=== PATIENT | male | born 1935 | race Caucasian/White ===

== ENCOUNTER 2023-07-13 13:24 | Outpatient (RCR) | payer OTHER, SELFPAY | END 2023-07-13 23:59 | disposition home or self-care (01) | LOC: RST 13:24 | PROVIDERS: ATTENDING PHYSICIAN Family Medicine | DX: R47.01 Aphasia (principal) | CPT/HCPCS: 92507 ==

== ENCOUNTER → 2023-10-26 07:35 | Outpatient (REF) | payer OTHER, SELFPAY ==
[2023-10-26 09:23] LABS: ALT (SGPT) 27 U/L (0-50); AST (SGOT) 42 U/L (17-59); Albumin 4.8 g/dl (3.5-5.0); Alkaline Phosphatase 74 U/L (38-126); Blood Urea Nitrogen 24 mg/dl (9-20); Calcium 9.9 mg/dl (8.4-10.2); Carbon Dioxide 31 mmol/L (22-30); Chloride 99 mmol/L (98-107); Glucose 94 mg/dl (70-99); Sodium 139 mmol/L (135-145); Total Bilirubin 0.9 mg/dl (0.2-1.3); Total Protein 7.2 g/dl (6.3-8.2); eGFR 26.81
[2023-10-26 09:35] LABS: Potassium 3.7 mmol/L (3.5-5.1)
[2023-10-26 09:48] LABS: TSH 4.61 uIU/ml (0.47-4.68)
== END ==
LOC: REG 07:35
PROVIDERS: ATTENDING PHYSICIAN Internal Medicine Cardiovascular Disease; FAMILY PHYSICIAN Family Medicine
DX: Z79.899 Other long term (current) drug therapy (principal)
CPT/HCPCS: 36415; 80053; 84443

== ENCOUNTER → 2023-11-14 08:18 | Outpatient (REF) | payer OTHER, SELFPAY ==
[2023-11-14 12:01] LABS: Blood Urea Nitrogen 27 mg/dl (9-20); Calcium 9.6 mg/dl (8.4-10.2); Carbon Dioxide 29 mmol/L (22-30); Chloride 102 mmol/L (98-107); Glucose 92 mg/dl (70-99); Potassium 4.5 mmol/L (3.5-5.1); Sodium 138 mmol/L (135-145); eGFR 33.72
== END ==
LOC: REG 08:18
PROVIDERS: ATTENDING PHYSICIAN Internal Medicine Cardiovascular Disease; FAMILY PHYSICIAN Family Medicine
DX: I10 Essential (primary) hypertension (principal); N18.30 Chronic kidney disease, stage 3 unspecified
CPT/HCPCS: 36415; 80048

== ENCOUNTER → 2024-05-11 13:33 | Outpatient (REF) | payer OTHER, SELFPAY ==
[2024-05-11 15:12] LABS: ALT (SGPT) 21 U/L (0-50); AST (SGOT) 34 U/L (17-59); Albumin 4.4 g/dl (3.5-5.0); Alkaline Phosphatase 52 U/L (38-126); Blood Urea Nitrogen 25 mg/dl (9-20); Calcium 9.4 mg/dl (8.4-10.2); Carbon Dioxide 30 mmol/L (22-30); Chloride 99 mmol/L (98-107); Glucose 92 mg/dl (70-99); Potassium 4.4 mmol/L (3.5-5.1); Sodium 139 mmol/L (135-145); Total Bilirubin 0.8 mg/dl (0.2-1.3); Total Protein 6.7 g/dl (6.3-8.2); eGFR 31.71
[2024-05-11 17:29] LABS: TSH 3.35 uIU/ml (0.47-4.68)
== END ==
LOC: REG 13:33
PROVIDERS: ATTENDING PHYSICIAN Internal Medicine Cardiovascular Disease; FAMILY PHYSICIAN Family Medicine
DX: I10 Essential (primary) hypertension (principal)
CPT/HCPCS: 36415; 80053; 84443

== ENCOUNTER 2024-05-18 22:11 | Inpatient (IN) | payer OTHER, SELFPAY ==
[2024-05-18 18:52] VITALS: BP 199/71; BMI 18.9
[2024-05-18 19:03] VITALS: BP 199/71
[2024-05-18 19:42] LABS: % Eosinophils 4.1 % (0-6); % Immature Granulocytes 0.3 % (0-0.5); % Lymphocytes 20.4 % (20.5-51.1); % Monocytes 9.4 % (1.7-9.3); % Neutrophils 64.8 % (42.2-75.2); Absolute Basophils 0.1 10^3/uL (0-0.2); Absolute Eosinophils 0.2 10^3/uL (0-0.7); Absolute Lymphocytes 1.2 10^3/uL (1.2-3.4); Absolute Monocytes 0.6 10^3/uL (0.1-0.6); Absolute Neutrophils 3.8 10^3/uL (1.4-6.5); Hematocrit 34.7 % (39.0-52.0); Hemoglobin 11.5 g/dL (13.0-18.0); Mean Corp Hgb Conc. 33.1 g/dL (33.0-37.0); Mean Corpuscular Hgb 28.8 pg (27.0-31.0); Mean Platelet Volume 10.1 fL (7.4-10.4); Nucleated Red Blood Cells % 0 % (-); Platelet Count 170 10^3/uL (130-400); Red Blood Cell Count 3.99 10^6/uL (4.70-6.10); Red Cell Dist. Width 14.2 % (11.5-14.5); White Blood Cell Count 5.9 10^3/uL (4.8-10.8)
[2024-05-18 20:00] VITALS: BP 193/70
[2024-05-18 20:06] LABS: ALT (SGPT) 21 U/L (0-50); AST (SGOT) 35 U/L (17-59); Albumin 4.1 g/dl (3.5-5.0); Alkaline Phosphatase 54 U/L (38-126); Blood Urea Nitrogen 30 mg/dl (9-20); Calcium 9.2 mg/dl (8.4-10.2); Carbon Dioxide 29 mmol/L (22-30); Chloride 101 mmol/L (98-107); Estimated Creatinine Clearance 27 ml/min; Glucose 104 mg/dl (70-99); Potassium 4.2 mmol/L (3.5-5.1); Sodium 139 mmol/L (135-145); Total Bilirubin 0.5 mg/dl (0.2-1.3); Total Protein 6.4 g/dl (6.3-8.2); eGFR 35.98
--- NOTE | 2024-05-18 21:03 | ED.GENMED ---
History of Present Illness
General
Chief Complaint: Fall
Time Seen by Provider: 05/18/24 19:23
History of Present Illness
History of Present Illness:
88-year-old male with history of dementia and A-fib on Eliquis presents to the emergency department for evaluation of left lower extremity deformity after a witnessed fall at home. Patient cannot provide any history secondary to dementia. Last
dose of Eliquis was this morning
Past History
Past History
ED Past Medical History: Arrthythmia (afib), CAD, Cancer, GERD, HTN, Hypercholesterolemia, Renal failure, Valvular disease and Psychiatric
ED Past Surgical History: Appendectomy, Cardiac and Urological
Patient has exhibited threatening behavior?: No
Social History
Tobacco: Non-smoker
Alcohol: None
Drug: None
Living: with family
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
Family History
Family History: Other (Noncontributory)
Review of Systems
Review of Systems
Allergies reviewed?: Yes
All Other Systems: ROS reviewed and negative except as documented in HPI and ROS
Phy Exam
Physical Exam
Physical Exam:
GEN: Well appearing, NAD, WDWN
HEENT: Normocephalic and atraumatic, oral mucosa moist, no scleral icterus
Cardiac: Regular rate
Lung: No respiratory distress, no tachypnea
MSK: Significant rotation externally and shortening of the left lower extremity
Skin: Good color, no pallor or jaundice, no rashes
Neuro: Alert to baseline mental status, floridly confused, does not follow commands
Psych: Calm, cooperative
Course
Orders/Labs/Results
Orders:
Orders
05/18/24 19:21
CR Ankle - Left 2 Views Urgent
Reason For Exam: fall, pain
Hip, Left 2-3 Views [CR Hip - LT w/wo Pel 2-3 Vw*] Urgent
Comment:
Reason For Exam: fall, pain
Include a pelvis x-ray?: Yes
05/18/24 19:27
CT Head W/o Iv Contrast Urgent
Comment:
Reason For Exam: fall on Eliquis
05/18/24 19:28
Complete Blood Count/With Diff Urgent
Comprehensive Metabolic Panel Urgent
Abnormal Lab Results
05/18/24
19:28
RBC 3.99 L 10^6/uL
(4.70-6.10)
Hgb 11.5 L g/dL
(13.0-18.0)
Hct 34.7 L %
(39.0-52.0)
Lymphocytes % 20.4 L %
(20.5-51.1)
Monocytes % 9.4 H %
(1.7-9.3)
BUN 30 H mg/dl
(9-20)
Creatinine 1.8 H mg/dL
(0.7-1.3)
Glucose 104 H mg/dl
(70-99)
05/18/24 19:28
05/18/24 19:28
Vital Signs
Initial and Last Documented VS:
Initial Vital Signs
Temp Pulse Resp BP Pulse Ox
97.5 F 64 16 199/71 98
05/18/24 18:52 05/18/24 18:52 05/18/24 18:52 05/18/24 18:52 05/18/24 18:52
Last Documented Vital Signs
Temp Pulse Resp BP Pulse Ox
97.5 F 69 7 199/71 97
05/18/24 18:52 05/18/24 19:03 05/18/24 19:03 05/18/24 19:03 05/18/24 19:13
MDM/Problems Addressed
MDM/Problems Addressed:
Witnessed fall at home with a left intertrochanteric fracture, will admit to the hospitalist service for further management
*Critical Care Note
Total Time (30-74mins, 75-104mins- exclusive of procedures): Not Applicable
ED Attending Note
-
Portions of this chart may have been created with voice recognition software.� Occasional wrong word or��sound alike� substitutions may have occurred due to the inherent limitations of voice recognition software.
Discharge Plan
Departure
Patient Disposition: Admit
Date of Disposition: 05/18/24
Time of Disposition: 21:15
Admit to: Med/Surg
Presentation/result/management discussed w/ accepting MD/DO: Hospitalist
Discharge Problem:
Closed intertrochanteric fracture of left femur
Prescriptions:
No Action
atorvastatin 40 MG tablet
40 mg PO DAILY
levothyroxine 50 MCG tablet
100 mcg PO DAILY
furosemide 40 MG tablet
40 mg PO DAILY
Eliquis 5 MG tablet
5 mg PO BID Qty: 60 11RF
amiodarone [Pacerone] 200 MG tablet
100 mg PO DAILY
aspirin 81 mg Tablet
81 mg PO .MO,WE,FR
Referrals:
Scott Anderson MD [Family Provider] -
Interventions
Interventions:
*Risk Screen - Suicide Last Done: 05/18/24 18:52
*General Assessment Last Done: 05/18/24 18:52
*Neglect/Abuse Screening Last Done: 05/18/24 18:52
ED- Fall Risk Assessment Last Done: 05/18/24 19:13
*ED COVID-19 Vaccine History Last Done: 05/18/24 18:52
ED-Musculoskeletal Assessment Last Done: 05/18/24 19:13
ED- Neurological Assessment Last Done: 05/18/24 19:13
ED-Skin Assessment Last Done: 05/18/24 19:13
Discharge Date and Time
Print Language: SAMMARINESE
--- NOTE | 2024-05-18 21:15 | HPS.HSE ---
Family Physician
-
Family Physician: Scott Anderson
Chief Complaint
-
fall
History of Present Illness
88-year-old male with history of dementia and A-fib on Eliquis,Aortic stenosis, PAF, GERD, HTn, HLD, CKD,BPH, urine incontinence with artificial sphincter presents to the emergency department for evaluation of left lower extremity deformity after a
witnessed fall at home. patient fell backward and fell on his buttocks. Patient cannot provide any history secondary to dementia. Last dose of Eliquis was this morning.
X ray with Comminuted displaced intertrochanteric proximal femur fracture. No intra-articular extension or dislocation.
admitting for further management.
Medical History
Past Medical History
Past Medical History: Reports Other
Additional Past Medical History:
CAD
mitral regurgitation
cva
anemia
prostate ca
hypothyroidism
dementia
paf
Alzheimer
hld
ckd
urinary incontinence with artificial sphincter
Past Surgical History: Reports Other
Additional Past Surgical History:
prostatectomy
cardiac stent
tonsillectomy
adenoidectomy
skin ca lesions removed
Social History
Tobacco: Non-smoker
Alcohol: None
Drug: None
Personal:
Living: With Family
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
Family History
Family History: Not pertinent
Allergies / Home Medications
Allergies reflects when Allergies were last updated in [facility].
Home Medications with original date entered in [employer]
Allergy/Medication List:
Allergies
Allergy/AdvReac Type Severity Reaction Status Date / Time
diatrizoate meglumine Allergy pt unsure Verified 05/18/24 18:58
[Diatrizoate Meglumine] of allergy
Iodinated Contrast Media Allergy Unknown Verified 05/18/24 18:58
[IV Dye, Iodine Containing]
iodine Allergy Unknown Verified 05/18/24 18:58
pollen extracts Allergy runny,watery Verified 05/18/24 18:58
nose,sore
throat,irritated,watery
eyes
tree and shrub pollen Allergy runny,watery Verified 05/18/24 18:58
nose,sore
throat,irritated,watery
eyes
Home Medications
amiodarone 200 mg tablet (Pacerone) 100 mg PO DAILY Arrhythmia 09/23/19
apixaban 2.5 mg tablet 2.5 mg PO BID 05/18/24
calcium 500 mg-vitamin D3 100 unit-vitamin K 40 mcg chewable tablet 1 tab PO DAILY 05/18/24
levothyroxine 100 mcg tablet 100 mcg PO DAILY 05/18/24
fujnoromonzu-lxjttzsl-djdzaf tablet 1 tab PO DAILY 05/18/24
omeprazole 20 mg capsule,delayed release 20 mg PO DAILY 05/18/24
Review of Systems
-
Unable to obtain full review of systems at this time due to: Dementia
Physical Exam
Vital Signs
Vital Signs
Temp Pulse Resp BP Pulse Ox
97.5 F 69 7 199/71 97
05/18/24 18:52 05/18/24 19:03 05/18/24 19:03 05/18/24 19:03 05/18/24 19:13
Physical Exam
General: Well Developed, Well Nourished and No Apparent Distress
HEENT: NormoCephalic, Moist mucous membranes and Atraumatic
Respiratory: Clear
Cardiac: S1/S2 and Regular Rhythm; No Murmur or Rub
GI: Soft, Non Tender, Non Distended and Normal Bowel Sounds; No Organomegaly
Rectal: Deferred by Provider
Musculoskeletal: No Clubbing, No Cyanosis, No Edema and Other (Significant rotation externally and shortening of the left lower extremity)
Skin: No Rash
Neuro: Nonfocal/grossly intact
Psych: Confused and Apparent Dementia
Laboratory Results
-
05/18/24 19:28
05/18/24 19:28
Laboratory Results
Total Bilirubin 0.5 mg/dl (0.2-1.3) 05/18/24 19:28
AST 35 U/L (17-59) 05/18/24 19:28
ALT 21 U/L (0-50) 05/18/24 19:28
Alkaline Phosphatase 54 U/L (38-126) 05/18/24 19:28
Data Reviewed
-
Diagnostic Radiology: Report Reviewed by me
CT Scan: Report Reviewed by me
Lab Data: Labs Reviewed by me
Impression/Plan
-
#left intertrochanteric fracture
-ortho consulted
-head CT with no acute findings
-Hip x ray with Comminuted displaced intertrochanteric proximal femur fracture. No intra-articular extension or dislocation
-ankle x ray with No acute fracture.
-oxy and Dilaudid prn for pain
-PT/OT consulted
#anemia of chronic disease
-hgb 11.5
-no active bleeding
-ctm
#CKD stage 3b
-cr 1.8
-ctm
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
-consider urology consult if patient unable to void or retaining
#Chronic HFpEF
-ECHO with Normal left ventricular size, wall thickness and systolic function. LV ejection fraction is 62% by volumetric assessment.
-not in acute exacerbation
-ctm
#hxt of moderate
#hxt of PAF
#CAD with stents
- s/p prior PVI ablation.
-hold eliquis,amiodarone continued
-obtain EKG
-cardiology consult for pre op clearance
#hypothyroidism
-levothyroxine continued
#Vascular Dementia
#Chronic Aphasia
�- CT head tonight with no new changes.
#hxt of prostate ca
-s/p proctectomy
#GERD
-PPI continued
DVT Prophylaxis:� heparin
Code Status:� DNR
--- NOTE | 2024-05-18 21:41 | W.PN.UPDATE ---
Update Note
Progress Note Update
Patient seen in conjunction with MEGHAN. I agree with the findings on history and physical. I concur with the assessment and plan unless needed otherwise.
This is a 88-year-old male with complex past medical history including atrial fibrillation on anticoagulation with Eliquis, hypertension, hyperlipidemia, hypothyroid, CAD status post stenting, prior CVA, dementia, CKD 3/4, prostate cancer status
post prostatectomy and artificial sphincter, severe aortic stenosis complicated by recurrent syncopal episodes earlier this year who presents to the emergency department following a mechanical fall at home. Patient has a history of recurrent falls
and collapse in the setting of ACS and the family is discussing possibility of hospice in the near future. He fell backwards today and rolled into the bathroom. There was no syncopal event this time. There was no loss of consciousness. He did
not hit his head. He did have a external rotation of his left feet immediately and EMS was called.
In the emergency department when I saw the patient he appeared to be in no acute distress. Pain appears to be well-controlled. He had no acute complaints.
He was hypertensive 190/70, afebrile with a pulse rate of 69. CT of the head was negative. His x-ray shows left intertrochanteric hip fracture. His CBC was unchanged from prior with a baseline hemoglobin of 11.5. Similarly is chemistries were
within normal limits with his baseline creatinine of 1.8.
Assessment and plan
1. Left hip intertrochanteric fracture
- admit to telemetry
- ortho consulted and aware,
- pain control, bed/rest for now
- DVT PPX
- regular diet for now
- PT/OT eval
2.Cardiac - Patient with complex cardiac history including afib on AC, CAD s/p stenting, symptomatic severe picture engraver area 0.8, diastolic dysfunction and syncope. Currently no evidence of exacerbation
- holding eliquis for now
- continue amio
- cardiology consult if requiring full anesthesia
3. - h/o artificial urinary sphincter. Patient able to self-regulate and control sphincter at home and renal function is stable
- monitor with bladder scan per fracture proctol
- if needing catheterization, consider urology consultation first as caliber/type of catheter may be unique
4. Hypothyroid
- continue levothyroxine
DVT PPX - heparin sq
Code status - DNR for now
--- NOTE | 2024-05-18 23:10 | PTCARENOTE ---
pt arrived to [facility] [address] from ED via stretcher, assisted into bed by staff. AAOx1, confused to place and time. Patient's L leg externally rotated, c/o pain when transferring or turning in bed with assist. Pt brief noted to be moderately saturated with
urine, patient also asking to go to bathroom. Pt VSS, oriented to call martinez use but will most likely need reinforcement. Bed alarm placed. Care ongoing.
[2024-05-18 23:34] VITALS: BP 154/67; BMI 17.7
[2024-05-18] MEDS: SENOKOT PO (23:56)
[2024-05-18] MEDS: COLACE PO (23:56)
[2024-05-19] MEDS: TYLENOL PO ×2 (00:52→12:57)
[2024-05-19] MEDS: TYLENOL 650 MG PO ×5 (03:42→23:48)
[2024-05-19] MEDS: SYNTHROID 100 MCG PO (06:05)
[2024-05-19 07:05] VITALS: BP 132/60
--- NOTE | 2024-05-19 08:04 | CON.CAR ---
Addendum entered and electronically signed by Gigi Lui MD 05/19/24 12:25:
I met with the patient as well as his .
He had a fall, no syncope.
He has had no CP or syncope
Elderly man in mild pain
RRR, Nl S1, delayed S2, no S3 or S4, 3/6 BSEM, no rubs
CTA ant b/l
Left comminuted intertrochanteric femur fracture
Patient is an 88 yo M with PMH of dementia, severe aortic stenosis not felt to be candidate for TAVR, orthostatic hypotension, PAF, CAD with prior PCI, moderate MR.
Most recent echo 07/26/2023 finds EF 62%, stage III diastolic dysfunction, severely dilated left atrium, mildly dilated right atrium, mitral sclerosis, moderate MR, severe with peak/mean gradient 67/42 mmHg, ELODIA 0.8 cm�, moderate to severe TR, PAP
45 to 50 mmHg
Cardiovascular risk assessment prior to surgical repair is requested. He is planned for OR 05/21, general anesthesia
While his planned surgery is not high CV risk, he is at high CV risk based primarily on severe . CKD, CAD, PAF adds additional risk.
He and his understand and wish to proceed with surgical repair
Eliquis has been placed on hold pre-op
Will need to avoid hypotension alphonso-op (aim to keep mean arterial pressure > 60 mm Hg)
Original Note:
Consultation
Consultation Request
Date/Time Consultation Performed: 05/19/24
Requesting Provider: Dr. Mo
Performing Provider: Janae Chiu PA-C for Dr. Sahil Lui
Reason for Consultation: femur fracture, preop eval
Medical History
-
Chief Complaint: fall
History of Present Illness:
Patient is an 88 yo M with PMH of dementia, aortic stenosis not felt to be candidate for TAVR, orthostatic hypotension, PAF, CAD with prior PCI, moderate MR. 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 He had a witnessed fall at home and presented to
emergency room for evaluation of this given left lower extremity deformity/pain. He reportedly fell backward onto his buttocks. He denies loss of consciousness that he remembers. Hip x-ray showed comminuted displaced intertrochanteric proximal
femur fracture. Cardiology consulted for preoperative evaluation. History limited at this time given patient's dementia. Denies CP, SOB, palpitations.
PMH:
Severe peak/mean 76/45 mmHg by echo 04/28/23
CAD s/p OM stent in 2007
Paroxysmal Afib
s/p PVI 2007
Chronic amiodarone therapy
Chronic Eliquis OAC
h/o Hypertension
h/o orthostasis/syncope
Moderate MR
Hyperlipidemia
CKD stage 3
Hypothyroidism
GERD
Osteoporosis
History of prostate cancer status post radical prostatectomy 2010
History of urinary incontinence status post artificial urinary sphincter in 2012
Past Medical History
Past Medical History: Other (in HPI)
Past Surgical History: Appendectomy, Cardiac (Circ PCI 2007, PVI) and Tonsilectomy
Social History
Tobacco: Non-Smoker
Alcohol: None
Drug: None
Personal:
Living: With Family
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
Family History
Family History: CAD, Cancer and Other (CVA)
Allergies / Home Medications
Allergy/AdvReac Type Severity Reaction Status Date / Time
diatrizoate meglumine Allergy pt unsure Verified 05/18/24 18:58
[Diatrizoate Meglumine] of allergy
Iodinated Contrast Media Allergy Unknown Verified 05/18/24 18:58
[IV Dye, Iodine Containing]
iodine Allergy Unknown Verified 05/18/24 18:58
pollen extracts Allergy runny,watery Verified 05/18/24 18:58
nose,sore
throat,irritated,watery
eyes
tree and shrub pollen Allergy runny,watery Verified 05/18/24 18:58
nose,sore
throat,irritated,watery
eyes
�Medication �Instructions �Recorded �Confirmed �Type
amiodarone 200 mg tablet (Pacerone) 100 mg PO DAILY Arrhythmia 09/23/19 05/18/24 History
apixaban 2.5 mg tablet 2.5 mg PO BID 05/18/24 05/18/24 History
calcium 500 mg-vitamin D3 100 1 tab PO DAILY 05/18/24 05/18/24 History
unit-vitamin K 40 mcg chewable
tablet
levothyroxine 100 mcg tablet 100 mcg PO DAILY 05/18/24 05/18/24 History
dpnbvxzfntxd-dhofklyr-szompj tablet 1 tab PO DAILY 05/18/24 05/18/24 History
omeprazole 20 mg capsule,delayed 20 mg PO DAILY 05/18/24 05/18/24 History
release
Review of Systems
-
Unable to obtain full review of systems at this time due to: Dementia
History Source: Patient
All other systems: Negative unless noted
Physical Exam
Vital Signs
Temp Pulse Resp BP Pulse Ox
98.0 F 64 20 154/67 98
05/18/24 23:34 05/18/24 23:34 05/18/24 23:34 05/18/24 23:34 05/18/24 23:34
Lab Results
05/18/24 19:28
05/18/24 19:28
Physical Exam
General: No Apparent Distress, Comfortable and Other (confused. cachectic)
HEENT: Normocephalic, Anicteric and Moist Mucous Membranes
Respiratory: Clear and Non Labored Respirations
Cardiac: S1/S2, Regular Rhythm and Murmur
GI: Soft, Non Tender, Non Distended and Normal Bowel Sounds
Musculoskeletal: No Clubbing, No Cyanosis and No Edema
Skin: Warm and Dry
Neuro: Awake, Alert and Oriented (to self)
Impression / Plan
-
Primary Sheeter Operator: Dr. GUERLINE Daigle
Assessment:
Presentation with witnessed fall
L comminuted displaced intertrochanteric proximal femur fracture
Severe peak/mean 76/45 mmHg by echo 04/28/23
CAD s/p OM stent in 2007
Paroxysmal Afib
s/p PVI 2007
Chronic amiodarone therapy
Chronic Eliquis OAC
h/o Hypertension
h/o orthostasis/syncope
Moderate MR
Hyperlipidemia
CKD stage 3
Hypothyroidism
GERD
Osteoporosis
History of prostate cancer status post radical prostatectomy 2010
History of urinary incontinence status post artificial urinary sphincter in 2012
Echo 07/26/2023: EF 62%, stage III diastolic dysfunction, severely dilated left atrium, mildly dilated right atrium, mitral sclerosis, moderate MR, severe with peak/mean gradient 67/42 mmHg, ELODIA 0.8 cm�, moderate to severe TR, PAP 45 to 50 mmHg,
IVC dilated
Plan:
-Patient presents with witnessed fall and evidence of left comminuted displaced intertrochanteric proximal femur fracture. Ortho to see and evaluate patient
-Cardiology consulted for preoperative evaluation
-Without complaints of syncope, chest discomfort, shortness of breath
-EKG sinus rhythm with prolonged QT measuring approximately 499 ms
-Echo from July 2023 with results as above
-BP/HR stable
-He would be high cardiovascular risk for procedures given comorbidities including severe , however this risk is not prohibitive to proceed given necessity of surgery
-Holding Eliquis. Would resume postoperatively when felt to be safe from surgical standpoint
-Attempt to avoid hypotension in the setting of severe . He has known history of orthostasis
-Discussed with nursing
Data Reviewed
-
EKG: Tracing Personally Visualized and interpreted
Medical Tests (Nuc Med, Echo etc): Report Reviewed by me
Labs: Labs Reviewed by me
Old Records: Reviewed
--- NOTE | 2024-05-19 08:05 | PTOTSP ---
Speech Pathology Screen
Chart reviewed. 88M with admission for femur fx s/p fall. PMH significant for dementia and A-fib on Eliquis ,Aortic stenosis, PAF, GERD, HTN, HLD, CKD,BPH, chronic aphasia, and urine incontinence. Possible hospice per chart. Vital signs stable.
WBC 5.9, WNL. Head CT with no acute abnormalities. 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 No overt concerns for aspiration at this time, please re-consult if s/s arise.
[2024-05-19] MEDS: COLACE 100 MG PO ×2 (08:26→20:54)
[2024-05-19] MEDS: HEPARIN 5000 UNITS SC (08:26)
[2024-05-19] MEDS: SENOKOT 17.2 MG PO ×2 (08:26→20:54)
[2024-05-19] MEDS: PROTONIX 40 MG PO (08:26)
[2024-05-19] MEDS: PACERONE 100 MG PO (08:36)
--- NOTE | 2024-05-19 09:16 | CON.ORTHO ---
Addendum entered and electronically signed by Luzmaria Mitchell PA-C 05/28/24 09:29:
Patient's condition likely due to combination of trauma from fall, and underlying osteoporosis.
Original Note:
Consultation
-
Date/Time Consultation Requested: 05/18/2024; time unknown
Date/Time Consultation Performed: 05/19/2024; 0800
Requesting Provider: unknown
Performing Provider: Dr. Wayne Ward / Luzmaria Mitchell PA-C
Reason for Consultation: Left intertrochanteric femur fracture
Consultation - Orthopedics
History
Patient was seen by both Dr. Ward and myself.
Mr. Swain is an 88-year-old male with complex past medical history including atrial fibrillation on anticoagulation with Eliquis, hypertension, hyperlipidemia, hypothyroid, CAD status post stenting, prior CVA, dementia, CKD 3/4, prostate cancer
status post prostatectomy and artificial sphincter, severe aortic stenosis complicated by recurrent syncopal episodes. Unfortunately, he sustained a mechanical fall at home yesterday. He was brought to ED where x-rays revealed an
intertrochanteric femur fracture. He is resting comfortably in bed this morning. He is confused per his baseline, but denies any pain in the hip at present.
He lives at home with his . He ambulates with the assistance of a walker at baseline.
Allergies / Home Medications
Allergy/AdvReac Type Severity Reaction Status Date / Time
diatrizoate meglumine Allergy pt unsure Verified 05/18/24 18:58
[Diatrizoate Meglumine] of allergy
Iodinated Contrast Media Allergy Unknown Verified 05/18/24 18:58
[IV Dye, Iodine Containing]
iodine Allergy Unknown Verified 05/18/24 18:58
pollen extracts Allergy runny,watery Verified 05/18/24 18:58
nose,sore
throat,irritated,watery
eyes
tree and shrub pollen Allergy runny,watery Verified 05/18/24 18:58
nose,sore
throat,irritated,watery
eyes
�Medication �Instructions �Recorded
amiodarone 200 mg tablet (Pacerone) 100 mg PO DAILY Arrhythmia 09/23/19
apixaban 2.5 mg tablet 2.5 mg PO BID 05/18/24
calcium 500 mg-vitamin D3 100 1 tab PO DAILY 05/18/24
unit-vitamin K 40 mcg chewable
tablet
levothyroxine 100 mcg tablet 100 mcg PO DAILY 05/18/24
erdshyexyacr-jfcrckpl-nfucnt tablet 1 tab PO DAILY 05/18/24
omeprazole 20 mg capsule,delayed 20 mg PO DAILY 05/18/24
release
Vital Signs / Lab Results
Temp Pulse Resp BP Pulse Ox
97.9 F 65 16 132/60 99
05/19/24 07:05 05/19/24 07:05 05/19/24 07:05 05/19/24 07:05 05/19/24 07:05
05/18/24 19:28
05/18/24 19:28
XR Left Hip 05/18/2024 Impression:
Comminuted displaced intertrochanteric proximal femur fracture. No intra-articular extension or dislocation.
Mild degenerative changes of the pubis symphysis, both hips, bilateral sacroiliac joints and partially visualized lower lumbar spine. Vascular calcifications present.
Directed exam of the left lower extremity reveals left leg shortened and externally rotated. No obvious erythema, ecchymosis or lesions. Tenderness to palpation about the anterior aspect of the hip. Thigh soft and compressible. Hip ROM deferred
secondary to known fracture. Positive log roll. Calf soft and nontender. Patient able to wiggle toes, plantar and dorsiflex ankle. NVID.
Assessment / Plan
Left comminuted intertrochanteric femur fracture
--Unfortunately, Ashvin sustained an intertrochanteric femur fracture in his fall. We recommend proceeding with surgical intervention of this fracture. Ashvin was confused when seen on rounds this morning, but I was able to discuss with his Ame,
and his daughter, Dodie. The risks, benefits, alternatives, recovery process and potential complications were discussed in detail. Ame elected to proceed with surgical intervention of Ashvin's fracture. We will plan for OR on Monday 05/21 for left hip
cephalomedullary nail after Eliquis washout. This will be performed under the direction of Dr. Ward. He is on Eliquis for PAF, and his last dose was yesterday AM. Ame provided consent for blood and surgical intervention over the phone. Surgical
consent placed in patient chart.
--Given medical comorbidities, we would appreciate input from medicine and cardiology regarding medical optimization. Per cardiology note, he is high cardiac risk, but this does not preclude him from proceeding with surgery.
--Bedrest until surgery. NWB to LLE.
--NPO after midnight for OR 05/21. Diet per medicine for time being.
--Would recommend d/c subq Heparin. Reached out to medicine to discuss.
--Pain control prn. Ice prn for pain and edema control.
--Orthopedics will continue to follow along.
--- NOTE | 2024-05-19 09:54 | CM ---
Reviewed the chart notes and spoke with the patient at the bedside. The patient is somewhat confused. CM spoke with the patient's daughter Dodie. Per daughter, the patient resides with his spouse in a two story home with with a stair glide, raised
toilet, tub bench and rails. The patient has had VN in the past, but no SNF. The patient has caregivers three days a week for six hours each time. The family was scheduled to meet with Hospice on Tuesday. The patient's pharmacy of choice is
[facility]. CM continues to be available to patient/family and is monitoring medical plan for needs at discharge.
Plan: Discharge plans will depend on the patient's progress. Patient's daughter indicating she would prefer home with VN vs SNF.
[2024-05-19 11:10] VITALS: BP 104/55
--- NOTE | 2024-05-19 11:18 | W.PN.HOSP.TC ---
Today's Communication/Plan
-
Monitor vital signs
see plan
Pain control
DC heparin
hold eliquis
SCDs
plan for OR tuesday per ortho
cardiology following
Assessment / Plan
Assessment / Plan
General: Well Developed, Well Nourished and No Apparent Distress
HEENT: NormoCephalic, Moist mucous membranes and Atraumatic
Respiratory: Clear
Cardiac: S1/S2 and Regular Rhythm; No Murmur or Rub
GI: Soft, Non Tender, Non Distended and Normal Bowel Sounds
Musculoskeletal: No Edema and Other (Significant rotation externally and shortening of the left lower extremity)
Neuro: Nonfocal/grossly intact
Psych: Confused and Apparent Dementia
left intertrochanteric fracture
-ortho following; plan for OR monday 05/21
-head CT with no acute findings
-Hip x ray with Comminuted displaced intertrochanteric proximal femur fracture. No intra-articular extension or dislocation
-ankle x ray with No acute fracture.
-oxy and Dilaudid prn for pain
#anemia of chronic disease
monitor hgb
-no active bleeding
#CKD stage 3b
-cr 1.8
-ctm
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
-consider urology consult if patient unable to void or retaining
#Chronic HFpEF
-ECHO with Normal left ventricular size, wall thickness and systolic function. LV ejection fraction is 62% by volumetric assessment.
-not in acute exacerbation
-ctm
#hxt of moderate
#hxt of PAF
#CAD with stents
- s/p prior PVI ablation.
-hold eliquis,amiodarone continued
-cardiology following for pre OP; hgh risk
#hypothyroidism
-levothyroxine continued
#Vascular Dementia
#Chronic Aphasia
�- CT head tonight with no new changes.
#hxt of prostate ca
-s/p proctectomy
#GERD
-PPI continued
DVT Prophylaxis:� SCD's
Code Status:� DNR
I spent a total of 52 minutes with the patient or on the floor. More than 50% of this time involved counseling and coordination of care.
Anticipated Discharge: > 48 hours
Subjective/Interval History
-
Date of Service: May 19, 2024
denies nausea
Objective Data
-
Vital Signs:
Vital Signs
Temp Pulse Resp BP Pulse Ox
97.9 F 68 16 104/55 99
05/19/24 11:10 05/19/24 11:10 05/19/24 11:10 05/19/24 11:10 05/19/24 11:10
I&O
05/18/24 05/19/24 05/20/24
06:59 06:59 06:59
Intake Total 400 / 400
Output Total 150 / 150
Balance 250 / 250
[2024-05-19 11:42] VITALS: BMI 17.7
[2024-05-19 11:56] VITALS: BMI 17.7
--- NOTE | 2024-05-19 12:31 | PTCARENOTE ---
Patient oriented to self only and forgetful. Patient makes needs known and follows commands. Patient needs prompts to eat and drink. Patient has no c/o pain, only turning on side. Ice to left hip, left heel elevated. Patient s resting comfortably at
present, family at bedside.
[2024-05-19 15:00] VITALS: BP 101/51
--- NOTE | 2024-05-19 16:14 | PTCARENOTE ---
Patient attempted to climb OOB. Bed alarm was ringing and patient had both legs over the side rail when RN came into room. Patient confused, combative and uncooperative. RN attempted to reorient patient with no success. Patient is calm at present,
side rails up, bed alarm maintained.
[2024-05-19 19:07] VITALS: BP 129/57
[2024-05-19 23:12] VITALS: BP 143/65
[2024-05-20] VITALS (12 sets, daily range): BP systolic 120–151; BP diastolic 66–77; BMI 17.7
[2024-05-20] MEDS: TYLENOL 650 MG PO ×4 (03:25→20:54)
[2024-05-20 05:15] LABS: Blood Urea Nitrogen 39 mg/dl (9-20); Calcium 8.9 mg/dl (8.4-10.2); Carbon Dioxide 29 mmol/L (22-30); Chloride 100 mmol/L (98-107); Estimated Creatinine Clearance 20 ml/min; Glucose 117 mg/dl (70-99); Potassium 4.4 mmol/L (3.5-5.1); Sodium 139 mmol/L (135-145); eGFR 28.28
[2024-05-20 05:19] LABS: % Basophils 0.4 % (0-2); % Eosinophils 0.8 % (0-6); % Immature Granulocytes 0.5 % (0-0.5); % Lymphocytes 11.1 % (20.5-51.1); % Neutrophils 77.2 % (42.2-75.2); Absolute Eosinophils 0.1 10^3/uL (0-0.7); Absolute Immature Granulocytes 0.1 10^3/uL (0-0.05); Absolute Lymphocytes 1.1 10^3/uL (1.2-3.4); Absolute Monocytes 0.9 10^3/uL (0.1-0.6); Absolute Neutrophils 7.3 10^3/uL (1.4-6.5); Hematocrit 24.7 % (39.0-52.0); Hemoglobin 8.2 g/dL (13.0-18.0); Mean Corp Hgb Conc. 33.2 g/dL (33.0-37.0); Mean Corpuscular Volume 87.3 fL (80.0-94.0); Mean Platelet Volume 10.2 fL (7.4-10.4); Nucleated Red Blood Cells % 0 % (-); Platelet Count 169 10^3/uL (130-400); Red Blood Cell Count 2.83 10^6/uL (4.70-6.10); Red Cell Dist. Width 14.4 % (11.5-14.5); White Blood Cell Count 9.4 10^3/uL (4.8-10.8)
[2024-05-20] MEDS: SYNTHROID 100 MCG PO (06:13)
--- NOTE | 2024-05-20 07:56 | W.PN.UPDATE ---
Update Note
Progress Note Update
Mr. Swain is resting comfortably in bed this morning, and denies any pain in his hip at present. He is less confused this morning, and I was able to answer the few questions he had this morning.
Directed exam of the left lower extremity reveals left leg shortened and externally rotated. No obvious erythema, ecchymosis or lesions. Tenderness to palpation about the anterior aspect of the hip. Thigh soft and compressible. Hip ROM deferred
secondary to known fracture. Positive log roll. Calf soft and nontender. Patient able to wiggle toes, plantar and dorsiflex ankle. NVID.
Hgb 8.2 this AM.
Left comminuted intertrochanteric femur fracture
--Plan to proceed with OR tomorrow for left hip cephalomedullary nail under the direction of Dr. Ward.
--Bedrest until surgery. NWB to LLE.
--NPO after midnight for OR 05/21. Diet per medicine for time being.
--Holding Eliquis and Heparin.
--Pain control prn. Ice prn for pain and edema control.
--Antibiotics ordered to OR.
--Orthopedics will continue to follow along.
[2024-05-20] MEDS: COLACE PO ×3 (08:38→20:53)
[2024-05-20] MEDS: SENOKOT PO ×3 (08:38→20:53)
[2024-05-20] MEDS: PROTONIX 40 MG PO (08:39)
[2024-05-20] MEDS: PACERONE 100 MG PO (08:39)
[2024-05-20] MEDS: ZYPREXA ZYDIS (ORALLY DISINTEGRATING) 5 MG PO (10:24)
--- NOTE | 2024-05-20 10:25 | PTCARENOTE ---
Pt combative this morning, trying to hit staff with the call martinez/remote. Pt is reaching off the bed and trying to grab oxygen regulator, trying to climb out of the bed. notified. Order received for Zyprexa, and was administered as ordered. Pt is
currently on bed alarm and has [employer] video monitoring. Pt to be transfused with 2 units of PRBC's today and will have !:! nursing staff during the transfusion. B/L soft limb restraints utilized as ordered. Will continue to monitor closely for
safety.
--- NOTE | 2024-05-20 10:46 | W.PN.HOSP.TC ---
Today's Communication/Plan
-
Monitor vital signs
see plan
Agitated at times, discussed with spouse and will try Zyprexa. Restraints if necessary
Transfused 2 units PRBC per orthopedics
Plan for OR tomorrow
Assessment / Plan
Assessment / Plan
General: Well Developed, Well Nourished and No Apparent Distress
HEENT: NormoCephalic, Moist mucous membranes and Atraumatic
Respiratory: Clear
Cardiac: S1/S2 and Regular Rhythm; No Murmur or Rub
GI: Soft, Non Tender, Non Distended and Normal Bowel Sounds
Musculoskeletal: No Edema and Other (Significant rotation externally and shortening of the left lower extremity)
Neuro: Nonfocal/grossly intact
Psych: Confused and Apparent Dementia
left intertrochanteric fracture
-ortho following; plan for OR monday 05/21
-head CT with no acute findings
-Hip x ray with Comminuted displaced intertrochanteric proximal femur fracture. No intra-articular extension or dislocation
-ankle x ray with No acute fracture.
-oxy and Dilaudid prn for pain
#anemia of chronic disease; currently with acute blood loss anemia secondary to fracture
Orthopedics requested 2 units of blood transfusion
monitor hgb
#Vascular Dementia with behavioral disturbances
agitated at times; trial of zyprexa. Discussed with spouse
#Chronic Aphasia
�- CT head tonight with no new changes.
#CKD stage 3b
baseline around 1.8-2
-ctm
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
-consider urology consult if patient unable to void or retaining
#Chronic HFpEF
-ECHO with Normal left ventricular size, wall thickness and systolic function. LV ejection fraction is 62% by volumetric assessment.
-not in acute exacerbation
-ctm
#hxt of moderate
#hxt of PAF
#CAD with stents
- s/p prior PVI ablation.
-hold eliquis,amiodarone continued
-cardiology following for pre OP; high risk
#hypothyroidism
-levothyroxine continued
#hxt of prostate ca
-s/p proctectomy
#GERD
-PPI continued
DVT Prophylaxis:� SCD's
Code Status:� DNR
I spent a total of 53 minutes with the patient or on the floor. More than 50% of this time involved counseling and coordination of care.
Anticipated Discharge: > 48 hours
Subjective/Interval History
-
Date of Service: May 20, 2024
confused
Objective Data
-
Labs:
Laboratory Results
05/20/24
04:24
WBC 9.4
Hgb 8.2 L D
Hct 24.7 L
Plt Count 169
Sodium 139
Potassium 4.4
Chloride 100
Carbon Dioxide 29
BUN 39 H
Creatinine 2.2 H
Glucose 117 H
Calcium 8.9
Vital Signs:
Vital Signs
Temp Pulse Resp BP Pulse Ox
97.6 F 76 16 127/71 98
05/20/24 08:00 05/20/24 08:00 05/20/24 08:00 05/20/24 08:00 05/20/24 08:00
I&O
05/19/24 05/20/24 05/21/24
06:59 06:59 06:59
Intake Total 400 / 400 1220 / 1220
Output Total 150 / 150 100 / 100
Balance 250 / 250 1120 / 1120
--- NOTE | 2024-05-20 14:58 | HOSPNOTE ---
Addendum entered by Kayla Liang RN 05/20/24 15:01:
Attending updated as well.
Original Note:
Patient was planning to be an admission to hospice services on Tuesday. Patient sustained a fall and was sent to the ER Tuesday evening. I have been in contact with daughter Dodie today who reviewed the plan is for surgical intervention on Tuesday.
Pending the outcome of surgery, family may consider hospice over rehab. Reviewed with daughter Dodie that we will follow patient throughout hospital stay and if hospice is warranted we will arrange accordingly. Emotional support provided.
--- NOTE | 2024-05-20 16:15 | PTCARENOTE ---
Pt transfused with 2 units PRBC's/ without incident. VSS, Pt remains afebrile.
[2024-05-20] MEDS: TYLENOL PO (18:16)
[2024-05-20] MEDS: ZYPREXA 5 MG PO (21:00)
[2024-05-21] VITALS (12 sets, daily range): BP systolic 108–167; BP diastolic 57–96; BMI 18.4
[2024-05-21] MEDS: TYLENOL PO ×6 (00:45→23:44)
[2024-05-21] MEDS: TYLENOL 650 MG PO (03:05)
--- NOTE | 2024-05-21 04:06 | PTCARENOTE ---
Linens and gown changed and first set of CHG wipes completed.
[2024-05-21] MEDS: SYNTHROID PO (06:21)
[2024-05-21 07:24] LABS: % Basophils 0.4 % (0-2); % Eosinophils 0.8 % (0-6); % Immature Granulocytes 0.9 % (0-0.5); % Lymphocytes 9.6 % (20.5-51.1); % Monocytes 11.2 % (1.7-9.3); % Neutrophils 77.1 % (42.2-75.2); Absolute Eosinophils 0.1 10^3/uL (0-0.7); Absolute Immature Granulocytes 0.1 10^3/uL (0-0.05); Absolute Monocytes 1.2 10^3/uL (0.1-0.6); Absolute Neutrophils 8.2 10^3/uL (1.4-6.5); Hemoglobin 10.4 g/dL (13.0-18.0); Mean Corp Hgb Conc. 34.7 g/dL (33.0-37.0); Mean Corpuscular Hgb 30.4 pg (27.0-31.0); Mean Corpuscular Volume 87.7 fL (80.0-94.0); Mean Platelet Volume 10.5 fL (7.4-10.4); Nucleated Red Blood Cells % 0 % (-); Platelet Count 137 10^3/uL (130-400); Red Blood Cell Count 3.42 10^6/uL (4.70-6.10); Red Cell Dist. Width 14.4 % (11.5-14.5); White Blood Cell Count 10.6 10^3/uL (4.8-10.8)
[2024-05-21] MEDS: SENOKOT PO ×2 (07:32→20:30)
[2024-05-21] MEDS: COLACE PO ×2 (07:32→20:30)
[2024-05-21 07:58] LABS: Blood Urea Nitrogen 43 mg/dl (9-20); Calcium 8.3 mg/dl (8.4-10.2); Carbon Dioxide 26 mmol/L (22-30); Chloride 100 mmol/L (98-107); Estimated Creatinine Clearance 22 ml/min; Glucose 96 mg/dl (70-99); Potassium 4.5 mmol/L (3.5-5.1); Sodium 140 mmol/L (135-145)
[2024-05-21] MEDS: PROTONIX PO (09:06)
[2024-05-21] MEDS: PACERONE PO (09:06)
--- NOTE | 2024-05-21 10:26 | W.PN.UPDATE ---
Update Note
Progress Note Update
Patient at bedrest this morning. A little confused, but not combative. Hgb 10.4 this AM. Patient to remain NPO. plan for Gamma nail fixation of his left femur fracture a bit later under the direction of Ed. Consents obtained previously. ABX
director rehabilitation program
--- NOTE | 2024-05-21 11:41 | W.PN.CARDCBS ---
Addendum entered and electronically signed by Roney Ortiz DO 05/21/24 14:24:
I saw and examined the patient.
The [employer] Watch Hands Dipper's note was reviewed and I agree with the note.
Comment:
Plan:
He remains compensated from a cardiac perspective but remains high risk for surgery given his hx of significant .
Attempts should be made to avoid hypotension and large fluid shifts that may worsen his gradients.
Pt had been recommended surgery for quality of life and family understands the perioperative cardiac risks.
Cont close perioperatively monitoring.
Resume Eliquis once ok from surgical standpoint.
Pt follows with Dr Daigle.
Original Note:
Today's Communication / Plan
-
High risk for surgery
Impression / Plan
-
Primary Network Developer: Dr. GUERLINE Daigle
Assessment:
Presentation with witnessed fall 05/18/24
Left comminuted displaced intertrochanteric proximal femur fracture
Severe peak/mean 76/45 mmHg by echo 04/28/23
CAD s/p OM stent in 2007
Paroxysmal Afib
s/p PVI 2007
Chronic amiodarone therapy
Chronic Eliquis OAC
h/o Hypertension
h/o orthostasis/syncope
Moderate MR
Hyperlipidemia
CKD stage 3
Hypothyroidism
GERD
Osteoporosis
History of prostate cancer status post radical prostatectomy 2010
History of urinary incontinence status post artificial urinary sphincter in 2012
Echo 07/26/2023: EF 62%, stage III diastolic dysfunction, severely dilated left atrium, mildly dilated right atrium, mitral sclerosis, moderate MR, severe with peak/mean gradient 67/42 mmHg, ELODIA 0.8 cm�, moderate to severe TR, PAP 45 to 50 mmHg,
IVC dilated
Plan:
-Patient is being watched by the med sitter service and is in B/L wrist restraints
-Patient is high risk for surgery due to h/o severe . Additional risk associated with CKD, CAD and pAfib.
-Outpatient dose of Eliquis 2.5 mg BID (age 88, Cre 2.1) is on hold and would resume post-op when safe from a surgical standpoint.
-Keep Hgb greater than 8 and avoid hypotension with a goal MAP of 60
-Appears to be in SR on tele review by me 05/21/24. Cont outpatient dose of amiodarone 100 mg daily
Progress Note - Network Developer
Subjective
Date of Service: May 21, 2024
Unresponsive to questions
Objective
Labs:
05/21/24 04:50
05/21/24 04:50
Labs
Hgb 10.4 g/dL (13.0-18.0) L D 05/21/24 04:50
Hct 30.0 % (39.0-52.0) L 05/21/24 04:50
Plt Count 137 10^3/uL (130-400) 05/21/24 04:50
Sodium 140 mmol/L (135-145) 05/21/24 04:50
Potassium 4.5 mmol/L (3.5-5.1) 05/21/24 04:50
BUN 43 mg/dl (9-20) H 05/21/24 04:50
Creatinine 2.1 mg/dL (0.7-1.3) H 05/21/24 04:50
Glucose 96 mg/dl (70-99) 05/21/24 04:50
Vital Signs and I&O:
Vital Signs
Temp Pulse Resp BP Pulse Ox
98.6 F 72 18 133/63 99
05/21/24 08:30 05/21/24 08:30 05/21/24 08:30 05/21/24 08:30 05/21/24 08:30
Vital Signs
Temp Pulse Resp BP Pulse Ox
98.6 F 72 18 133/63 99
05/21/24 08:30 05/21/24 08:30 05/21/24 08:30 05/21/24 08:30 05/21/24 08:30
Intake & Output
05/19/24 05/20/24 05/21/24 05/22/24
06:59 06:59 06:59 06:59
Intake Total 400 / 400 1220 / 1220 1360 / 1360
Output Total 150 / 150 100 / 100 900 / 900
Balance 250 / 250 1120 / 1120 460 / 460
Physical Exam
Physical Exam
GEN: NAD
HEENT: MMM
LUNGS: No audible wheeze. Breathing RA
CV: SR on tele
ABD: ND
EXT: No edema B/L. LLE externally rotated and marked for surgery
NEURO: Moving both UE evenly against restraints
SKIN: No rash
--- NOTE | 2024-05-21 11:54 | CM ---
Case management following for discharge planning
Chart reviewed
Pt for OR today for Gamma nail fixation of his left femur fracture
PT/OT evals post op pending
Family prefers home with VN
Plan - TBD post op - likely SNF vs VN
--- NOTE | 2024-05-21 17:37 | W.PN.HOSP.TC ---
Today's Communication/Plan
-
see plan above
Assessment / Plan
Assessment / Plan
left intertrochanteric fracture
-S/p ORIF 05/21
-head CT with no acute findings
-Hip x ray with Comminuted displaced intertrochanteric proximal femur fracture. No intra-articular extension or dislocation
-ankle x ray with No acute fracture.
-oxy and Dilaudid prn for pain
-DVT prophylaxis per ortho - Eliquis 2.5mg bid for 3 days and then full strength.
#anemia of chronic disease; currently with acute blood loss anemia secondary to fracture
Orthopedics requested 2 units of blood transfusion
monitor hgb
#Vascular Dementia with behavioral disturbances
agitated at times; trial of zyprexa.
#Chronic Aphasia
�- CT head tonight with no new changes.
#CKD stage 3b
baseline around 1.8-2
-ctm
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
-consider urology consult if patient unable to void or retaining
#Chronic HFpEF
-ECHO with Normal left ventricular size, wall thickness and systolic function. LV ejection fraction is 62% by volumetric assessment.
-not in acute exacerbation
-ctm
#hxt of moderate
#hxt of PAF
#CAD with stents
- s/p prior PVI ablation.
-hold eliquis,amiodarone continued
-cardiology following for pre OP; high risk
#hypothyroidism
-levothyroxine continued
#hxt of prostate ca
-s/p proctectomy
#GERD
-PPI continued
DVT Prophylaxis:� SCD's
Code Status:� DNR
Anticipated Discharge: 24 - 48 hours
Subjective/Interval History
-
Date of Service: May 21, 2024
Seen in PACU
Sedate from anesthesia.
Hemodynamically stable.
Objective Data
-
Labs:
Laboratory Results
05/21/24
04:50
WBC 10.6
Hgb 10.4 L D
Hct 30.0 L
Plt Count 137
Sodium 140
Potassium 4.5
Chloride 100
Carbon Dioxide 26
BUN 43 H
Creatinine 2.1 H
Glucose 96
Calcium 8.3 L
Vital Signs:
Vital Signs
Temp Pulse Resp BP Pulse Ox
98.4 F 67 19 140/58 99
05/21/24 14:57 05/21/24 14:57 05/21/24 14:57 05/21/24 14:57 05/21/24 14:57
I&O
05/20/24 05/21/24 05/22/24
06:59 06:59 06:59
Intake Total 1220 / 1220 1360 / 1360
Output Total 100 / 100 900 / 900
Balance 1120 / 1120 460 / 460
Review of Systems
-
Unable to obtain full review of systems at this time due to: Other (Sedate)
Physical Exam
-
General: Comfortable
Respiratory: Non Labored Respirations; Negative Accessory Resp Muscle Use
Cardiac: Regular Rhythm, S1/S2 and Murmur; Negative Tachycardic (on monitor)
GI: Soft
Neuro: Sedated
Data Reviewed
-
Labs: Labs Reviewed by me
--- NOTE | 2024-05-21 19:35 | PTCARENOTE ---
[facility] PACU at 1900 in a bed with Left/right wrist soft limb restraints. Pt has 3 primacells on their left hip. The top Left hip primacell is has moderate drainage. The 2 below the top left hip primacell have small drainage on
both. Will continue to monitor drainage. Bed locked and in lowest position. Medsitter in place. Care ongoing.
[2024-05-21] MEDS: NSS 1000 IV (20:27)
[2024-05-21] MEDS: ELIQUIS PO (20:28)
--- NOTE | 2024-05-21 22:20 | PTCARENOTE ---
Pt refusing to swallow nighttime pills. Pt spit pills out and refused to drink water with them. Pt voice sounds like a gurgle. Suction set up at bedside. Pt voice more clear post suction. Will continue to monitor and suction as needed.
[2024-05-21] MEDS: ZYPREXA PO (22:50)
[2024-05-21] MEDS: ANCEF 5 IV (23:38)
[2024-05-22 02:55] VITALS: BP 140/88
[2024-05-22] MEDS: TYLENOL PO ×6 (03:59→23:55)
[2024-05-22 05:47] VITALS: BMI 18.4
[2024-05-22 07:04] LABS: Hemoglobin 9.4 g/dL (13.0-18.0)
[2024-05-22 07:08] VITALS: BP 133/98
--- NOTE | 2024-05-22 07:12 | W.PN.UPDATE ---
Update Note
Progress Note Update
Mr. Swain is postop day 1 following his left hip cephalomedullary nail performed by Dr. Ward. He is resting comfortably in bed this morning. He is quite confused per his baseline, but noncombative. His wrists are in restraints at present.
His nurses report he has refused oral medications overnight.
Directed exam of the left lower extremity reveals middle surgical dressing has been picked away, and proximal dressing saturated with blood. These were changed at the bedside this morning. Thigh soft and compressible. Calf soft and nontender.
Patient able to wiggle toes and plantar dorsiflex ankle. Neurovascular intact distally.
Hemoglobin 9.4 this morning. Vital signs stable.
88-year-old male postop day 1 left hip cephalomedullary nail under the direction of Dr. Ward
--Weightbearing as tolerated to left lower extremity with walker. We appreciate the assistance of PT/OT while patient admitted.
--Recommend Eliquis 2.5 mg twice daily for 3 days then full-strength.
-- Pain control as needed. Ice and elevation as needed for pain and edema control.
-- Maintain surgical dressings until 7 to 10 days postop. Staple removal at 2 weeks postop.
-- Hemoglobin 9.4 this morning. Continue to monitor.
-- Case management consult for discharge planning.
-- Orthopedics will continue to follow along.
[2024-05-22 07:29] LABS: Blood Urea Nitrogen 42 mg/dl (9-20); Calcium 8.2 mg/dl (8.4-10.2); Carbon Dioxide 26 mmol/L (22-30); Chloride 102 mmol/L (98-107); Estimated Creatinine Clearance 27 ml/min; Glucose 116 mg/dl (70-99); Potassium 4.9 mmol/L (3.5-5.1); Sodium 140 mmol/L (135-145); eGFR 38.53
[2024-05-22] MEDS: ANCEF 5 IV (09:32)
[2024-05-22] MEDS: PACERONE PO (09:33)
[2024-05-22] MEDS: SYNTHROID PO (09:33)
[2024-05-22] MEDS: COLACE PO ×2 (09:33→22:20)
[2024-05-22] MEDS: SENOKOT PO ×2 (09:34→22:20)
[2024-05-22] MEDS: PROTONIX PO (09:34)
[2024-05-22] MEDS: NSS 1000 IV (09:37)
[2024-05-22] MEDS: OFIRMEV 50 MG IV ×2 (09:39→15:08)
[2024-05-22] MEDS: ELIQUIS PO (09:39)
[2024-05-22 11:20] VITALS: BP 127/58
--- NOTE | 2024-05-22 11:28 | W.PN.CARDCBS ---
Today's Communication / Plan
-
Eliquis should be 2.5 mg twice daily when okay with orthopedics
Otherwise no recommendations
Family plans hospice consult, which had been scheduled prior to hip fracture
We will sign off, please call if questions
Impression / Plan
-
Assessment:
Presentation with witnessed fall 05/18/24
Left comminuted displaced intertrochanteric proximal femur fracture
Severe peak/mean 76/45 mmHg by echo 04/28/23
CAD s/p OM stent in 2007
Paroxysmal Afib
s/p PVI 2007Chronic amiodarone therapy
Chronic Eliquis OAC
h/o Hypertension
h/o orthostasis/syncope
Moderate MR
Hyperlipidemia
CKD stage 3
Hypothyroidism
GERD
Osteoporosis
History of prostate cancer status post radical prostatectomy 2010
History of urinary incontinence status post artificial urinary sphincter in 2012
Plan:
Overall, he appears relatively comfortable postop day 1 status post gamma nail to left hip
Hemodynamics are stable no evidence of heart failure, arrhythmia, other cardiac issues at present
Given his progressive dementia with superimposed toxic metabolic encephalopathy, aortic stenosis, and numerous other comorbidities, agree that referral to hospice is appropriate.
If therapy is to be continued, would increase Eliquis to 2.5 mg twice daily if okay with surgery
Otherwise, no new recommendations. We will sign off, please call if questions.
Progress Note - Air Defense Control Officer
Subjective
Date of Service: May 22, 2024:
Patient is confused, fluent but unintelligible, family members at bedside. He appears to be comfortable, offers no specific complaints
PMH/PSH/SH/FH: Reviewed
Allergies, outpatient meds reviewed
Current meds: Amiodarone 100 mg daily, levothyroxine 100 mcg daily, pantoprazole 40 mg a day, Colace, Senokot, Zyprexa, Eliquis 2.5 mg daily weight 63 kg
127/58, pulse 74, resp rate 18, afebrile, cachectic,, lungs relatively clear, regular rate and rhythm AAS murmur, abdomen scaphoid no edema, neuro nonfocal but confused,
Creatinine 1.7, hemoglobin 9.4
Objective
Labs:
05/22/24 04:31
05/22/24 04:31
Labs
Hgb 9.4 g/dL (13.0-18.0) L 05/22/24 04:31
Hct 28.0 % (39.0-52.0) L 05/22/24 04:31
Plt Count 137 10^3/uL (130-400) 05/21/24 04:50
Sodium 140 mmol/L (135-145) 05/22/24 04:31
Potassium 4.9 mmol/L (3.5-5.1) 05/22/24 04:31
BUN 42 mg/dl (9-20) H 05/22/24 04:31
Creatinine 1.7 mg/dL (0.7-1.3) H 05/22/24 04:31
Glucose 116 mg/dl (70-99) H 05/22/24 04:31
Vital Signs and I&O:
Vital Signs
Temp Pulse Resp BP Pulse Ox
36.6 C 74 18 127/58 95
05/22/24 11:20 05/22/24 11:20 05/22/24 11:20 05/22/24 11:20 05/22/24 11:20
Vital Signs
Temp Pulse Resp BP Pulse Ox
36.6 C 74 18 127/58 95
05/22/24 11:20 05/22/24 11:20 05/22/24 11:20 05/22/24 11:20 05/22/24 11:20
Intake & Output
05/20/24 05/21/24 05/22/24 05/23/24
07:59 07:59 07:59 07:59
Intake Total 1220 / 1220 1360 / 1360 1155 / 1155
Output Total 100 / 100 900 / 900 550 / 550
Balance 1120 / 1120 460 / 460 605 / 605
Physical Exam
Physical Exam
See above
--- NOTE | 2024-05-22 11:48 | W.PN.HOSP.TC ---
Today's Communication/Plan
-
cw PT eval and dispo planning
Hospice eval
Assessment / Plan
Assessment / Plan
left intertrochanteric fracture
-S/p ORIF 05/21
-head CT with no acute findings
-Hip x ray with Comminuted displaced intertrochanteric proximal femur fracture. No intra-articular extension or dislocation
-ankle x ray with No acute fracture.
-oxy and Dilaudid prn for pain
-DVT prophylaxis per ortho - Eliquis 2.5mg daily per ortho
#anemia of chronic disease; currently with acute blood loss anemia secondary to fracture
s/p two units of PRBC 05/20
Follow HH
#Vascular Dementia with behavioral disturbances
agitated at times; CW trial of zyprexa.
#Chronic Aphasia
�- CT head tonight with no new changes.
#CKD stage 3b
baseline around 1.8-2
-ctm
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
-consider urology consult if patient unable to void or retaining
#Chronic HFpEF
-ECHO with Normal left ventricular size, wall thickness and systolic function. LV ejection fraction is 62% by volumetric assessment.
-not in acute exacerbation
-ctm
#hxt of moderate
#hxt of PAF
#CAD with stents
- s/p prior PVI ablation.
-hold eliquis,amiodarone continued
-cardiology following for pre OP; high risk
#hypothyroidism
-levothyroxine continued
#hxt of prostate ca
-s/p proctectomy
#GERD
-PPI continued
DVT Prophylaxis:� SCD's
Code Status:� DNR
Consult Hospice as it was planned as OP already .
Anticipated Discharge: 24 - 48 hours
Subjective/Interval History
-
Date of Service: May 22, 2024
More alert and interactive. Still confused about the events leading to the hospital. Did not know he had left hip fracture and repair.
at bedside who is seen some improvement with regards to mentation but his cognition still not at baseline.
tells me apparently there was a hospice meeting to happen starting of this week. It was arranged by PCP with regards to general decline and significant aortic stenosis. She was wondering if they can see him here. It is [facility] team.
Objective Data
-
Labs:
Laboratory Results
05/22/24
04:31
Hgb 9.4 L
Hct 28.0 L
Sodium 140
Potassium 4.9
Chloride 102
Carbon Dioxide 26
BUN 42 H
Creatinine 1.7 H
Glucose 116 H
Calcium 8.2 L
Vital Signs:
Vital Signs
Temp Pulse Resp BP Pulse Ox
97.8 F 74 18 127/58 95
05/22/24 11:20 05/22/24 11:20 05/22/24 11:20 05/22/24 11:20 05/22/24 11:20
I&O
05/21/24 05/22/24 05/23/24
06:59 06:59 06:59
Intake Total 1360 / 1360 1155 / 1155
Output Total 900 / 900 550 / 550
Balance 460 / 460 605 / 605
Review of Systems
-
Unable to obtain full review of systems at this time due to: Dementia
Physical Exam
-
General: Comfortable
Respiratory: Non Labored Respirations; Negative Accessory Resp Muscle Use
Cardiac: Regular Rhythm and S1/S2; Negative Tachycardic
GI: Soft and Nontender
Neuro: Awake, Alert and Oriented (self and person)
Psych: Calm and Confused; Negative Agitated (currently)
Data Reviewed
-
Labs: Labs Reviewed by me
--- NOTE | 2024-05-22 12:49 | CM ---
Addendum entered by Nahomy Hall 05/22/24 15:59:
Family requesting referral be made to [facility] per Hospice
Referrals sent in [facility]
Plan - hospice when bed obtained at [facility]
Original Note:
Case management following for discharge planning
Spoke with pts family at bedside
Family requesting hospice consult - had previously planned to have pt signed on Hospice
TT sent to Hospice nurse - will contact family
Dispo per family to be based upon hospice recommendations
PT/OT pending
plan - tbd - hospice consulted
--- NOTE | 2024-05-22 13:19 | HOSPNOTE ---
Left a message for patient's daughter Dodie. Will await a call back to discuss hospice. More information to follow.
[2024-05-22] MEDS: SYNTHROID 100 MCG PO (14:58)
[2024-05-22] MEDS: ELIQUIS 2.5 MG PO (14:59)
[2024-05-22] MEDS: PACERONE 100 MG PO (15:00)
[2024-05-22] MEDS: PROTONIX 40 MG PO (15:01)
[2024-05-22 15:23] VITALS: BP 145/61
[2024-05-22] MEDS: NSS IV (19:00)
[2024-05-22] MEDS: ZYPREXA 5 MG PO (21:31)
[2024-05-22 23:30] VITALS: BP 146/63
[2024-05-23] MEDS: SYNTHROID 100 MCG PO (05:49)
[2024-05-23] MEDS: TYLENOL PO ×6 (05:55→22:54)
--- NOTE | 2024-05-23 05:56 | PTCARENOTE ---
Pt slept a few uninterrupted hours throughout shift. Pt able to tolerate small pills in small amount of thickened liquids but would benefit from speech evaluation @ this time.
--- NOTE | 2024-05-23 07:28 | PTCARENOTE ---
order placed for NPO and speech evaluation r/t increasing mouth secretion and position of cervical spine making it difficult to swallow.
--- NOTE | 2024-05-23 07:42 | W.PN.UPDATE ---
Update Note
Progress Note Update
Mr. Swain is postop day 2 following his left hip cephalomedullary nail performed by Dr. Ward. He is resting comfortably in bed this morning. He is quite confused per his baseline, but noncombative. His wrists are in restraints at present.
Directed exam of the left lower extremity reveals surgical dressings clean, dry and intact. Thigh soft and compressible. Calf soft and nontender. Patient able to wiggle toes and plantar dorsiflex ankle. Neurovascular intact distally.
Hemoglobin 9.4 yesterday AM. Vital signs stable.
88-year-old male postop day 2 left hip cephalomedullary nail under the direction of Dr. Ward
--Weightbearing as tolerated to left lower extremity with walker. We appreciate the assistance of PT/OT while patient admitted.
--Recommend Eliquis 2.5 mg twice daily for 3 days then full-strength.
-- Pain control as needed. Ice and elevation as needed for pain and edema control.
-- Maintain surgical dressings until 7 to 10 days postop. Staple removal at 2 weeks postop. If removed at SNF, f/u outpatient 4 weeks post-op.
-- Hemoglobin 9.4 yesterday AM.
-- Case management consult for discharge planning.
-- Patient is stable post-operatively from an orthopedic standpoint. Orthopedics will sign off for now. Please reach out with any additional orthopedic questions or concerns.
[2024-05-23 08:00] VITALS: BP 136/76
--- NOTE | 2024-05-23 08:20 | PTOTSP ---
Dysphagia Evaluation
Patient presents with signs of oral/pharyngeal dysphagia related to his comorbidities (i.e., Alzheimer's dementia, CVA) and likely exacerbated after OR for left femur fracture.
Secretion management poor. Audible/repeated swallows with coughing noted with single sip of water. Absent swallow with need for suctioning noted with puree.
Goals of care discussions warranted re: nutrition/hydration. Per chart review, hospice discussions are on-going. Unable to recommend diet for comfort/pleasure at this time - though careful spoon feeding would be the most appropriate option moving
forward given patient's advanced dementia.
Recommend:
1.NPO
2.Non-oral meds
3.Hold aspiration risk hydration protocol
4.GOC discussion re: nutrition/hydration
5.Will f/u pending GOC.
[2024-05-23] MEDS: ELIQUIS PO (09:30)
[2024-05-23] MEDS: PACERONE PO (09:30)
[2024-05-23] MEDS: SENOKOT PO ×2 (09:30→19:51)
[2024-05-23] MEDS: PROTONIX PO (09:30)
[2024-05-23] MEDS: COLACE PO ×2 (09:30→19:51)
[2024-05-23 09:46] VITALS: BMI 18.5
[2024-05-23 11:55] VITALS: BP 132/64; BP 150/57; PULSE 72; O2SAT 96
[2024-05-23 11:56] VITALS: BP 150/57; PULSE 72; O2SAT 96
--- NOTE | 2024-05-23 12:40 | CM ---
Addendum entered by Nahomy Hall 05/23/24 15:31:
Spoke with pts daughter Dodie
Discussed hospice, nursing homes and updated on information provided by [facility]
NM - referral under review
Requested additional referrals be sent to [facility]
Medicare.gov list left in pts room for family to review
Plan - tbd - snf/ltc bed found/hospice. CM to follow
Original Note:
SNF referrals made to [facility] and [facility] - under review
[facility] requesting family contact financial office. Would need to complete financial nhung. Cost per day - $567.00
Called pts daughter Dodie to update. LM on VM
Plan - tbd
--- NOTE | 2024-05-23 14:27 | W.PN.HOSP.TC ---
Today's Communication/Plan
-
see plan above
Assessment / Plan
Assessment / Plan
left intertrochanteric fracture
-S/p ORIF 05/21
-head CT with no acute findings
-Hip x ray with Comminuted displaced intertrochanteric proximal femur fracture. No intra-articular extension or dislocation
-ankle x ray with No acute fracture.
-oxy and Dilaudid prn for pain
-DVT prophylaxis per ortho - Eliquis per ortho
#anemia of chronic disease; currently with acute blood loss anemia secondary to fracture
s/p two units of PRBC 05/20
Follow HH
#Vascular Dementia with behavioral disturbances
agitated at times; CW trial of zyprexa.
#Chronic Aphasia
�- CT head tonight with no new changes.
#CKD stage 3b
baseline around 1.8-2
-ctm
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
-consider urology consult if patient unable to void or retaining
#Chronic HFpEF
-ECHO with Normal left ventricular size, wall thickness and systolic function. LV ejection fraction is 62% by volumetric assessment.
-not in acute exacerbation
-ctm
#hxt of moderate
#hxt of PAF
#CAD with stents
- s/p prior PVI ablation.
-resume eliquis BID 05/24 ,amiodarone continued. Unable to take pills due to his dysphagia
- no immediate post op CV complications
#hypothyroidism
-levothyroxine continued
#hxt of prostate ca
-s/p proctectomy
#GERD
-PPI continued
DVT Prophylaxis:� SCD's
Code Status:� DNR
Consulted Hospice as it was planned as OP already .
Pt failed swallow eval . Currently NPO. Family having hospice discussion today. Keep on IV fluids
Anticipated Discharge: Within 24 hours
Subjective/Interval History
-
Date of Service: May 23, 2024
Pt is alert but not oriented or directable.
Not conversive today.
Needing restraints for protective purposes.
Objective Data
-
Vital Signs:
Vital Signs
Temp Pulse Resp BP Pulse Ox
98.0 F 68 18 136/76 96
05/23/24 08:00 05/23/24 08:00 05/23/24 08:00 05/23/24 08:00 05/23/24 08:00
I&O
05/22/24 05/23/24 05/24/24
06:59 06:59 06:59
Intake Total 1155 / 1155 740 / 740
Output Total 550 / 550
Balance 605 / 605 740 / 740
Review of Systems
-
Unable to obtain full review of systems at this time due to: Dementia
Physical Exam
-
General: Comfortable
Respiratory: Non Labored Respirations; Negative Accessory Resp Muscle Use
Cardiac: Regular Rhythm, S1/S2 and Murmur
GI: Soft
Neuro: Awake and Alert; Negative Oriented
Psych: Calm and Confused; Negative Agitated
[2024-05-23] MEDS: D5/0.45%NACL 1000 IV (14:42)
[2024-05-23 15:00] VITALS: BP 121/75
[2024-05-23] MEDS: ZYPREXA PO (21:58)
[2024-05-23] MEDS: OFIRMEV 100 IV (22:46)
[2024-05-23 23:37] VITALS: BP 128/84
--- NOTE | 2024-05-24 02:41 | PTCARENOTE ---
Middle surgical drsg changed d/t patient removing it in bed. Site cleansed with saline, dre intact, no signs of infection. 4x4 and tegaderm replaced. Patient tolerated well.
[2024-05-24] MEDS: D5/0.45%NACL 1000 IV ×2 (02:57→18:10)
--- NOTE | 2024-05-24 04:49 | PTCARENOTE ---
This RN received report and assumed care of this patient at 0400.
[2024-05-24] MEDS: TYLENOL PO ×5 (05:13→21:27)
[2024-05-24] MEDS: SYNTHROID PO (05:33)
[2024-05-24 06:00] VITALS: BMI 18.7
[2024-05-24 08:10] VITALS: BP 135/53
--- NOTE | 2024-05-24 09:23 | PTOTSP ---
Dysphagia Therapy
Patient continues with signs concerning for oral/pharyngeal dysphagia related to comorbidities (i.e., Alzheimer's dementia, CVA) and likely exacerbated after OR for left femur fracture.
Secretion management improved. Signs concerning for aspiration continue with thin liquids. Cannot rule out silent aspiration with thicker consistencies. Video swallow study would likely be limited at this time given patient's difficulty following
commands and behaviors (i.e., biting on straws).
Recommend:
1. NPO and further goals of care discussions re: nutrition in patient with dementia
2. If opting for PO for comfort/pleasure recommend careful spoon feeding of pureed solids with verbal cues to swallow
3. Hold aspiration risk hydration protocol at this time given AMS
4. Essential medications crushed in puree with verbal cues to swallow
5. Dysphagia tx pending GOC
[2024-05-24] MEDS: COLACE PO ×2 (09:50→21:27)
[2024-05-24] MEDS: SENOKOT 17.2 MG PO (09:50)
[2024-05-24] MEDS: ELIQUIS 2.5 MG PO (09:50)
[2024-05-24] MEDS: PROTONIX PO (09:50)
[2024-05-24] MEDS: PACERONE 100 MG PO (09:53)
--- NOTE | 2024-05-24 10:16 | PN.CDI ---
CDI
- -
CDI:
Physician Documentation Request
Admit Date: 05/18/24 22:11
Dear Orthopedics,
Please review the following and provide your response in the progress notes.
Clinical Indicators:
Pt admitted for intertrochanteric femur fracture.
05/18 H&P: '..a witnessed fall at home. patient fell backward and fell on his buttocks.'
05/19 Cardiology included in Pt's PMHx 'Osteoporosis'
Please provide further specificity regarding the diagnosis of fracture:
Pathological due to osteoporosis
Traumatic
Due to a combination of trauma and a pathological process but the trauma alone would not likely have been sufficient to cause the fracture
Other
Use of terms such as suspected, likely, concern for, or probable (associated with a specific diagnosis that is being evaluated, monitored, or treated as if it exists) are acceptable and can be coded in the inpatient setting, when documented at the
time of discharge.
Thank you,
Rachel Pillai RN, BSN
CDI Specialist
Available via [place] [employer]
Please use your independent medical judgment in providing your response.
--- NOTE | 2024-05-24 10:36 | PN.CDI ---
CDI
- -
CDI:
Physician Documentation Request
Admit Date: 05/18/24 22:11
Dear Doctor Brian,
Please review the following and provide your response in the progress notes.
Clinical Indicators:
Pt admitted with left intertrochanteric fracture.
05/23 Registered Dietitian Note: 'RD able to visualize temporal wasting, apparent ribs, calf muscle wasting, protrusion of clavical, fat loss over tricept.
Pt made npo this morning due to increasing mouth secretion and position of cervical spine making it difficult to swallow per nursing.
CBW: (05/22) 139 lbs 4.8 oz. BMI 18.4 (underweight); 134 lbs 6.4 oz BMI 17.7 (05/18), Pts weight previous admission listed as 154 lbs 07/26/23 reflective of a 20 lb (13%) weight loss in 10 months.
With observed muscle and fat wasting pt meets AND/ASPEN criteria for severe protein calorie malnutrition of chronic illness.'
If possible, please provide in your progress notes, additional specificity regarding the severity of the malnutrition:
Severe protein calorie malnutrition
Other (please specify)
[place] Criteria (ACP Hospitalist 2017)
2 or more criteria must be present for either
non severe or severe malnutrition
Note that the criteria differs related to the
presence of an acute or chronic illness
Chronic Illness
Energy Intake Non Severe: <75% for >1 month
Severe: <75% for >1 month
Weight Loss Non Severe: 5% over 1 month
7.5% over 3 months
10% over 6 months
20% over 1 year
Severe: >5% over 1 month
>7.5% over 3 months
>10% over 6 months
>20% over 1 year
Body Fat Non Severe: Mild Loss
Severe: Severe Loss
Muscle Mass Non Severe: Mild Loss
Severe: Severe Loss
Additional criteria that can be used to Determine if Mild or Moderate Malnutrition (Merck Manual 2018)
Use of terms such as suspected, likely, concern for, or probable (associated with a specific diagnosis that is being evaluated, monitored, or treated as if it exists) are acceptable and can be coded in the inpatient setting, when documented at the
time of discharge.
Thank you,
Rachel Pillai RN, BSN
CDI Specialist
Available via [place] [employer]
Please use your independent medical judgment in providing your response.
--- NOTE | 2024-05-24 10:48 | PN.CDI ---
CDI
- -
CDI:
Physician Documentation Request
Admit Date: 05/18/24 22:11
Dear Doctor Brian,
Please review the following and provide your response in the progress notes.
Clinical Indicators:
Pt admitted with left intertrochanteric fracture.
05/19 RN skin assessment note: 'coccyx is reddened but still blanchable at this time.'
05/20 RN skin assessment note: 'Stage 2 coccyx pressure injury.'
Physician documentation of the type and location of wounds is required for compliant documentation. Based on the above clinical findings and your assessment, please provide the following in your progress note:
Stage 2 coccyx pressure injury POA
Stage 2 coccyx pressure injury not POA
Non-pressure coccyx skin injury
Other
Use of terms such as suspected, likely, concern for, or probable (associated with a specific diagnosis that is being evaluated, monitored, or treated as if it exists) are acceptable and can be coded in the inpatient setting, when documented at the
time of discharge.
Thank you,
Rachel Pillai RN, BSN
CDI Specialist
Available via [place] Text
Please use your independent medical judgment in providing your response.
*Source: National Pressure Ulcer Advisory Panel (NPUAP)
--- NOTE | 2024-05-24 11:19 | CM ---
Addendum entered by Nahomy Hall 05/24/24 11:57:
Updated pts daughter Dodie - re: [facility]
Daughter requested family be updated by physician
TT sent to Dr Torres - for family update
Addendum entered by Nahomy Hall 05/24/24 11:39:
Called [facility] [phone]
LM on for Rosa Maria in admissions, requesting return call
Original Note:
Case management following for discharge planning
Chart reviewed
Plan - Hospice
Called Michelle at [facility] [phone] to discuss pts needs
Pt remains on medsitter
Speech following - NPO
Plan - anticipate snf/ltc with hospice
--- NOTE | 2024-05-24 14:53 | W.PN.HOSP.TC ---
Today's Communication/Plan
-
Ongoing dispo efforts
Assessment / Plan
Assessment / Plan
left intertrochanteric fracture
-S/p ORIF 05/21
-head CT with no acute findings
-Hip x ray with Comminuted displaced intertrochanteric proximal femur fracture. No intra-articular extension or dislocation
-ankle x ray with No acute fracture.
-oxy and Dilaudid prn for pain
-DVT prophylaxis per ortho - Eliquis per ortho
#anemia of chronic disease; currently with acute blood loss anemia secondary to fracture
s/p two units of PRBC 05/20
#Vascular Dementia with behavioral disturbances
agitated at times; CW trial of zyprexa.
#Chronic Aphasia
�- CT head tonight with no new changes.
#CKD stage 3b
baseline around 1.8-2
-ctm
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
-consider urology consult if patient unable to void or retaining
#Chronic HFpEF
-ECHO with Normal left ventricular size, wall thickness and systolic function. LV ejection fraction is 62% by volumetric assessment.
-not in acute exacerbation
-ctm
#hxt of moderate
#hxt of PAF
#CAD with stents
- s/p prior PVI ablation.
-resume eliquis BID 05/24 ,amiodarone continued.
- no immediate post op CV complications
#hypothyroidism
-levothyroxine continued
#hxt of prostate ca
-s/p proctectomy
#GERD
-PPI continued
DVT Prophylaxis:� SCD's
Code Status:� DNR
Patient failed swallow eval. Currently NPO.
Discussed with ruchi Pittman at bedside-apparently patient has a living well for no NG or PEG tube feeds.
I explained to Toya at swallowing dysfunction could be part of his generalized weakness postsurgery.
Family had discussions with hospice and they are looking for hospice going forward. Discussed with hospice nurse-await placement.
If all family in agreement will get him on comfort foods.
CW IV fluids for now.
Anticipated Discharge: Within 24 hours
Subjective/Interval History
-
Date of Service: May 24, 2024
Alert but confused. Incomprehensible words. Talking to self.
Pulled his IV line and got a new one in. Is requiring restraints for protection.
Objective Data
-
Vital Signs:
Vital Signs
Temp Pulse Resp BP Pulse Ox
97.8 F 78 18 135/53 96
05/24/24 08:10 05/24/24 09:53 05/24/24 08:10 05/24/24 09:53 05/24/24 08:10
I&O
05/23/24 05/24/24 05/25/24
06:59 06:59 06:59
Intake Total 740 / 740 320 / 320
Balance 740 / 740 320 / 320
Review of Systems
-
Unable to obtain full review of systems at this time due to: Dementia
Physical Exam
-
General: No Apparent Distress
HEENT: Moist Mucous Membranes
Respiratory: Non Labored Respirations; Negative Accessory Resp Muscle Use
Cardiac: Regular Rhythm and S1/S2
GI: Soft
Neuro: Awake and Alert; Negative Oriented
Psych: Calm and Confused
Data Reviewed
-
Labs: Labs Reviewed by me
[2024-05-24 15:05] VITALS: BP 137/57
--- NOTE | 2024-05-24 15:36 | HOSPNOTE ---
Spoke with spouse and daughter Toya we will meet tomorrow at 11am to discuss hospice and the philosophy. More information to follow.
[2024-05-24 17:14] VITALS: BP 166/61; PULSE 65; O2SAT 98
[2024-05-24] MEDS: ZYPREXA 5 MG PO (21:20)
[2024-05-24] MEDS: SENOKOT PO (21:27)
[2024-05-24 23:00] VITALS: BP 158/77
[2024-05-25] MEDS: TYLENOL PO ×4 (01:19→15:50)
[2024-05-25] MEDS: D5/0.45%NACL 1000 IV (05:46)
[2024-05-25] MEDS: SYNTHROID 100 MCG PO (05:46)
[2024-05-25] MEDS: TYLENOL 650 MG PO (05:52)
[2024-05-25 06:00] VITALS: BMI 19.4
[2024-05-25 07:55] VITALS: BP 127/73
[2024-05-25] MEDS: PROTONIX PO (09:41)
[2024-05-25] MEDS: SENOKOT PO (09:41)
[2024-05-25] MEDS: COLACE PO (09:41)
[2024-05-25] MEDS: PACERONE 100 MG PO (09:45)
[2024-05-25] MEDS: ELIQUIS 2.5 MG PO (09:46)
--- NOTE | 2024-05-25 14:03 | W.PN.HOSP.TC ---
Addendum entered and electronically signed by Hector Torres MD 05/29/24 11:21:
Left hip fracture is traumatic in nature after a fall.
Addendum entered and electronically signed by Hector Torres MD 05/27/24 16:24:
Stage 2 coccyx pressure injury POA
Stage 2 coccyx pressure injury not POA
Non-pressure coccyx skin injury
CBW: (05/22) 139 lbs 4.8 oz. BMI 18.4 (underweight); 134 lbs 6.4 oz BMI 17.7 (05/18), Pts weight previous admission listed as 154 lbs 07/26/23 reflective of a 20 lb (13%) weight loss in 10 months.
With observed muscle and fat wasting pt meets AND/ASPEN criteria for severe protein calorie malnutrition of chronic illness.'
Original Note:
Today's Communication/Plan
-
DC
Assessment / Plan
Assessment / Plan
left intertrochanteric fracture
-Hip x ray with Comminuted displaced intertrochanteric proximal femur fracture. No intra-articular extension or dislocation;-S/p ORIF 05/21.
-ankle x ray with No acute fracture.
-oxy and Dilaudid prn for pain.
-DVT prophylaxis per ortho - Eliquis per ortho
#anemia of chronic disease; currently with acute blood loss anemia secondary to fracture
s/p two units of PRBC 05/20
#Vascular Dementia with behavioral disturbances
agitated at times; CW trial of zyprexa.
#Chronic Aphasia
�- CT head with no new changes.
#CKD stage 3b
baseline around 1.8-2
-ctm
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
-consider urology consult if patient unable to void or retaining
#Chronic HFpEF
-ECHO with Normal left ventricular size, wall thickness and systolic function. LV ejection fraction is 62% by volumetric assessment.
-not in acute exacerbation
-ctm
#hxt of moderate
#hxt of PAF
#CAD with stents
- s/p prior PVI ablation.
-resume eliquis BID 05/24 ,amiodarone continued.
- no immediate post op CV complications
#hypothyroidism
-levothyroxine continued
#hxt of prostate ca
-s/p proctectomy
#GERD
-PPI continued
DVT Prophylaxis:� SCD's
Code Status:� DNR
Patient failed swallow eval. Remains NPO.
NG or PEG tube feeds per pt wishes.
Patient unable to have any diet but only medication.
Since surgery has not progressed well.
There was earlier plans for hospice as an outpatient and we had discussions regarding goals of care as he is doing poorly after surgery . Family was agreeable for hospice eval. Hospice was consulted.
Discussed with Ame and her daughter Toya-they all had a discussion with the hospice and wants to continue now with comfort as a goal. In view of poor progression since surgery ,inability to to take oral diet and agitation needing
restraints i fee he is inpt hospice appropriate.
Family agreeable .
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
Total time of dc 35 min
Anticipated Discharge: Today
Subjective/Interval History
-
Date of Service: May 25, 2024
Patient mumbles words and hard to understand. He is awake and alert. Family at bedside also cannot comprehend his words.
Objective Data
-
Vital Signs:
Vital Signs
Temp Pulse Resp BP Pulse Ox
97.6 F 64 17 127/73 96
05/25/24 07:55 05/25/24 07:55 05/25/24 07:55 05/25/24 07:55 05/25/24 07:55
I&O
1005/25/24 05/26/24
06:59 06:59 06:59
Intake Total 320 / 320 960 / 960
Balance 320 / 320 960 / 960
Review of Systems
-
Unable to obtain full review of systems at this time due to: Other ( Due to his incomprehensible speech.)
Physical Exam
-
General: No Apparent Distress
Respiratory: Non Labored Respirations; Negative Accessory Resp Muscle Use
Cardiac: Regular Rhythm, S1/S2 and Murmur
GI: Soft
Neuro: Awake and Alert
Psych: Calm and Confused; Negative Agitated (restless)
[2024-05-25] MEDS: DILAUDID 0.25 MG IV (14:29)
--- NOTE | 2024-05-25 14:35 | HOSPNOTE ---
After a long discussion with family they are in agreement with hospice and the philosophy. Patient is agitated and restrained and I spoke with Dr Torres we will admit inpatient hospice. Admissions was called and patient will be moved to [facility] when a
bed is available.
--- NOTE | 2024-05-25 14:41 | PTCARENOTE ---
Restraints removed. Pt will be moved to [address] [place] [address] for inpatient hospice. Pt medicated with IV Dilaudid at this time.
--- NOTE | 2024-05-25 14:51 | CM ---
Chart reviewed
Family met with hospice this AM - family to sign pt on to inpatient hospice
CM remains available to pt/family as needed
Plan - Inpatient hospice
[2024-05-25 15:22] VITALS: BP 133/66
[2024-05-25] MEDS: ATIVAN 1 MG IV (15:23)
[2024-05-25] MEDS: NSS (PRESERVATIVE FREE) 0.5 ML IV (15:26)
--- NOTE | 2024-05-25 16:13 | W.DCSUMMARY ---
Discharge Summary
Discharge Data
Date of Admission: 05/18/24
Date of Discharge: 05/25/24
-
Pending Results: No
Hospital Course
primary diagnosis:
Left intertrochanteric fracture after fall status post ORIF
Acute on chronic anemia secondary to acute blood loss anemia s/p transfusion
Failure to thrive post surgery
Dysphagia
Vascular dementia with behavioral disturbances
Secondary diagnosis:
Chronically disease stage IIIb
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
Chronic heart failure with preserved EF
Moderate stenosis
Paroxysmal defibrillation
Coronary artery disease with prior stents.
Hypothyroidism
History of prostate cancer
Hospital course:
88-year-old gentleman with multiple comorbidities unfortunately had a mechanical fall and sustained a above-mentioned fracture. He had a palliative ORIF. He was doing poorly even before admission and there was discussions already in place for
hospice evaluation prior to this admission. Postop he had no immediate complications from the surgery but he failed to thrive. He had weakness and was not able to swallow and was kept NPO. He was kept on hydration and was supported medically but
still failed to thrive. He has living will which states no artificial means of feeding. In view of hospice was already and plans a consult was placed to hospice team. Family had a discussion with hospice today and transition to inpatient hospice
at [facility] once family agreed for hospice.
Consultants on board:
Ortho - Dr Ward
Cardiology - Jan Caceres
Discharge Plan
-
Patient Disposition: Hospice - Inpatient
Discharge Diagnosis/Procedures: Left hip cephalomedullary nail
Additional Diets: pureed comfort food
Activity: With Walker
Driving Restrictions: Not until seen by your Dr
Bathing Restrictions: OK to Shower
Referrals:
Scott Anderson MD [Family Provider] -
Prescriptions:
New
sennosides [Senna Laxative] 8.6 mg Tablet
17.2 mg PO BID Qty: 1 0RF
olanzapine 5 mg Tablet
5 mg PO HS Qty: 1 0RF
docusate sodium 100 mg Capsule
100 mg PO BID Qty: 1 0RF
oxycodone 5 mg Tablet
5 mg PO Q4HPRN PRN (Reason: mild pain) Qty: 1 0RF
Discontinued
amiodarone [Pacerone] 200 MG tablet
100 mg PO DAILY
levothyroxine 100 mcg tablet
100 mcg PO DAILY
omeprazole 20 mg Capsule,Delayed Release(Dr/Ec)
20 mg PO DAILY
[place] Tablet
1 tab PO DAILY
Viactiv 500 mg-100 unit -40 mcg Tablet,Chewable
1 tab PO DAILY
apixaban 2.5 mg Tablet
2.5 mg PO BID
Discharge Orders:
Discharge Patient (As Directed); Ordered 05/25/24
Ordered By: Hector Torres
Discharge Date and Time
Print Language: SYRIAN
--- NOTE | 2024-05-25 19:44 | PTCARENOTE ---
[facility] pt transferred to 2128 for inpatient hospice care. All belongings removed from room. Family followed.
== END 2024-05-25 18:27 | disposition hospice, inpatient (51) | DRG 480 ==
LOC: 2 SOUTH 22:11
PROVIDERS: Internal Medicine; Physician Assistant; Physician Assistant Surgical; ADMITTING PHYSICIAN Internal Medicine; ATTENDING PHYSICIAN Internal Medicine; CONSULT PHYSICIAN Specialist; EMERGENCY PHYSICIAN Student in an Organized Health Care Education/Training Program; FAMILY PHYSICIAN Family Medicine; OTHER PHYSICIAN Internal Medicine Cardiovascular Disease
PROC: 30233N1 Transfusion of Nonautologous Red Blood Cells into Peripheral Vein, Percutaneous Approach (ICD-10-PCS; 2024-05-20)
PROC: 0QS736Z Reposition Left Upper Femur with Intramedullary Internal Fixation Device, Percutaneous Approach (ICD-10-PCS; 2024-05-21)
DX: M80.052A Age-related osteoporosis with current pathological fracture, left femur, initial encounter for fracture (principal); E43 Unspecified severe protein-calorie malnutrition; F01.C18 Vascular dementia, severe, with other behavioral disturbance; I13.0 Hypertensive heart and chronic kidney disease with heart failure and stage 1 through stage 4 chronic kidney disease, or unspecified chronic kidney disease; I50.32 Chronic diastolic (congestive) heart failure; R47.01 Aphasia; Z68.1 Body mass index [BMI] 19.9 or less, adult; D62 Acute posthemorrhagic anemia; R64 Cachexia; Z66 Do not resuscitate; Z51.5 Encounter for palliative care; N18.32 Chronic kidney disease, stage 3b; I25.10 Atherosclerotic heart disease of native coronary artery without angina pectoris; N40.1 Benign prostatic hyperplasia with lower urinary tract symptoms; R32 Unspecified urinary incontinence; D63.1 Anemia in chronic kidney disease; E03.9 Hypothyroidism, unspecified; E78.00 Pure hypercholesterolemia, unspecified; K21.9 Gastro-esophageal reflux disease without esophagitis; I35.0 Nonrheumatic aortic (valve) stenosis; I95.1 Orthostatic hypotension; I48.0 Paroxysmal atrial fibrillation; R62.7 Adult failure to thrive; L89.152 Pressure ulcer of sacral region, stage 2; W19.XXXA Unspecified fall, initial encounter; Z95.5 Presence of coronary angioplasty implant and graft; Z91.041 Radiographic dye allergy status; Z90.79 Acquired absence of other genital organ(s); Z86.73 Personal history of transient ischemic attack (TIA), and cerebral infarction without residual deficits; Z85.46 Personal history of malignant neoplasm of prostate; Z79.899 Other long term (current) drug therapy; Z79.01 Long term (current) use of anticoagulants; Z79.890 Hormone replacement therapy
CPT/HCPCS: 70450; 73502; 73600; 76000; 80048; 80053; 85014; 85018; 85025; 86850; 86900; 86901; 86920; 92526; 92610; 93005; 97163; 97167; 97530; 99285; C1713; C1769; P9016

== ENCOUNTER 2024-05-25 18:28 | Inpatient (IN) | payer OTHER, SELFPAY ==
--- NOTE | 2024-05-25 15:22 | HOSPNOTE ---
Patient was admitted into [facility] Hospice services. His Sherin signed consents. Patient was given pain medication during this Hospice visit. Agitation decreased and restraints were removed. DR Torres was made aware that patient is now in Hospice.
Personal care was provided. Left hip incisions are clean dry and intact with dre. Scant serous drainage from middle incision. Sterile 4x4 place over area. Patient will need to remain [facility] due to needing skilled assessment of symptoms for
titration of medications for optimal comfort Family was made aware that the patient will be assessed daily and will be discharged if symptoms are able to be managed outside of a hospital setting.
--- NOTE | 2024-05-25 16:18 | HPS.HSE ---
Family Physician
-
Family Physician: NO INTERVIEW UNKNOWN
Chief Complaint
-
Inpatient hospice
History of Present Illness
88-year-old gentleman with multiple comorbidities unfortunately had a mechanical fall and sustained a above-mentioned fracture. He had a palliative ORIF. He was doing poorly even before admission and there was discussions already in place for
hospice evaluation prior to this admission. Postop he had no immediate complications from the surgery but he failed to thrive. He had weakness and was not able to swallow and was kept NPO. He was kept on hydration and was supported medically but
still failed to thrive. He has living will which states no artificial means of feeding. In view of hospice was already and plans a consult was placed to hospice team. Family had a discussion with hospice today and transition to inpatient hospice
at [facility] once family agreed for hospice.
Medical History
Past Medical History
Past Medical History: Reports Other
Additional Past Medical History:
CAD
mitral regurgitation
cva
anemia
prostate ca
hypothyroidism
dementia
paf
Alzheimer
hld
ckd
urinary incontinence with artificial sphincter
Past Surgical History: Reports Other
Additional Past Surgical History:
prostatectomy
cardiac stent
tonsillectomy
adenoidectomy
skin ca lesions removed
Social History
Tobacco: Non-smoker
Alcohol: None
Drug: None
Personal:
Living: With Family
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
Family History
Family History: Not pertinent
Allergies / Home Medications
Allergies reflects when Allergies were last updated in [facility].
Home Medications with original date entered in [facility]
Allergy/Medication List:
Allergies
Allergy/AdvReac Type Severity Reaction Status Date / Time
diatrizoate meglumine Allergy pt unsure Verified 05/18/24 18:58
[Diatrizoate Meglumine] of allergy
Iodinated Contrast Media Allergy Unknown Verified 05/18/24 18:58
[IV Dye, Iodine Containing]
iodine Allergy Unknown Verified 05/18/24 18:58
pollen extracts Allergy runny,watery Verified 05/18/24 18:58
nose,sore
throat,irritated,watery
eyes
tree and shrub pollen Allergy runny,watery Verified 05/18/24 18:58
nose,sore
throat,irritated,watery
eyes
Home Medications
amiodarone 200 mg tablet (Pacerone) 100 mg PO DAILY Arrhythmia 09/23/19
apixaban 2.5 mg tablet 2.5 mg PO BID 05/18/24
calcium 500 mg-vitamin D3 100 unit-vitamin K 40 mcg chewable tablet 1 tab PO DAILY 05/18/24
levothyroxine 100 mcg tablet 100 mcg PO DAILY 05/18/24
aioxailpjycc-voinauwe-zytgyu tablet 1 tab PO DAILY 05/18/24
omeprazole 20 mg capsule,delayed release 20 mg PO DAILY 05/18/24
Review of Systems
-
Unable to obtain full review of systems at this time due to: Dementia
Physical Exam
Physical Exam
General: No Apparent Distress
Respiratory: Non Labored Respirations; No Accessory Resp Muscle Use
Cardiac: S1/S2, Regular Rhythm and Murmur
GI: Soft and Non Tender
Neuro: Awake and Alert; No Oriented
Psych: Calm, Confused and Agitated
Impression/Plan
-
primary diagnosis:
Left intertrochanteric fracture after fall status post ORIF
Acute on chronic anemia secondary to acute blood loss anemia s/p transfusion
Failure to thrive post surgery
Dysphagia
Vascular dementia with behavioral disturbances
Secondary diagnosis:
Chronically disease stage IIIb
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
Chronic heart failure with preserved EF
Moderate stenosis
Paroxysmal defibrillation
Coronary artery disease with prior stents.
Hypothyroidism
History of prostate cancer
88-year-old gentleman with multiple comorbidities unfortunately had a mechanical fall and sustained a above-mentioned fracture. He had a palliative ORIF. He was doing poorly even before admission and there was discussions already in place for
hospice evaluation prior to this admission. Postop he had no immediate complications from the surgery but he failed to thrive. He had weakness and was not able to swallow and was kept NPO. He was kept on hydration and was supported medically but
still failed to thrive. He has living will which states no artificial means of feeding. In view of hospice was already and plans a consult was placed to hospice team. Family had a discussion with hospice today and transition to inpatient hospice
at [facility] once family agreed for hospice.
Start on in patient hospice treatments.
[2024-05-25 19:44] VITALS: BP 136/60
--- NOTE | 2024-05-25 19:47 | PTCARENOTE ---
Received report from [facility] on . Patient was transferred in his bed to [address] [place] [address] room 2128. 3 Family members are at his bedside.
[2024-05-25] MEDS: HALDOL 1 MG IV (19:54)
[2024-05-25] MEDS: ROBINUL 0.2 MG IV (19:56)
[2024-05-25] MEDS: FLUSH (NSS) 3 FLUSH IV (19:56)
[2024-05-25] MEDS: ATIVAN 1 MG IV (22:32)
[2024-05-25] MEDS: NSS (PRESERVATIVE FREE) 0.5 ML IV (22:33)
[2024-05-25] MEDS: FLUSH (NSS) 2 FLUSH IV ×3 (22:34→23:56)
[2024-05-25] MEDS: MORPHINE SULFATE 1 MG IV (23:55)
[2024-05-26] MEDS: HALDOL 1 MG IV (01:56)
[2024-05-26] MEDS: FLUSH (NSS) 2 FLUSH IV (01:57)
[2024-05-26] MEDS: ATIVAN 1 MG IV (02:00)
[2024-05-26] MEDS: NSS (PRESERVATIVE FREE) 10 ML IV (02:01)
[2024-05-26 07:10] VITALS: BP 159/68
[2024-05-26] MEDS: TYLENOL/FEVERALL 650 MG RECTAL (07:59)
[2024-05-26] MEDS: MORPHINE SULFATE 1 MG IV (08:15)
--- NOTE | 2024-05-26 09:51 | HOSPNOTE ---
Pt unresponsive, fixed gaze, tachypneic, fidgeting, restless, PO22 93% RA, faint pedal pulse. Pt received prn morphine x2 since Hospice admission on 05/25, last dose 914, Pt exhibiting moderate FLACC despite recent morphine admin- . Recommended
initiation of morphine drip for pain and respiratory mgt with escalating symptoms. Message sent via TT to Dr. Trores with recommendation for drip initiation. Dr. Torres in agreement, will reach out to family with update and support.
[2024-05-26] MEDS: MORPHINE SULFATE 2 MG IV (10:32)
--- NOTE | 2024-05-26 11:24 | HOSPNOTE ---
Met pt family in room and explained medications and recommendations for morphine drip. They are in agreement and are aware of pt limited life expectancy. Emotional support provided and reinforced [facility] availability.
--- NOTE | 2024-05-26 12:49 | W.PN.HOSP.TC ---
Today's Communication/Plan
-
Continue with comfort measures
Assessment / Plan
Assessment / Plan
primary diagnosis:
Left intertrochanteric fracture after fall status post ORIF
Acute on chronic anemia secondary to acute blood loss anemia s/p transfusion
Failure to thrive post surgery
Dysphagia
Vascular dementia with behavioral disturbances
Secondary diagnosis:
Chronically disease stage IIIb
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
Chronic heart failure with preserved EF
Moderate stenosis
Paroxysmal defibrillation
Coronary artery disease with prior stents.
Hypothyroidism
History of prostate cancer
88-year-old gentleman with multiple comorbidities unfortunately had a mechanical fall and sustained a above-mentioned fracture. He had a palliative ORIF. He was doing poorly even before admission and there was discussions already in place for
hospice evaluation prior to this admission. Postop he had no immediate complications from the surgery but he failed to thrive. He had weakness and was not able to swallow and was kept NPO. He was kept on hydration and was supported medically but
still failed to thrive. He has living will which states no artificial means of feeding. In view of hospice was already and plans a consult was placed to hospice team. Family had a discussion with hospice today and transition to inpatient hospice
at [facility] once family agreed for hospice.
Started on in patient hospice treatments.
Getting frequent dose of IV morphine. For speaking with the hospice team and the family ,felt probably IV morphine drip for comfort is more appropriate at this time. Order placed.
Anticipated Discharge: > 48 hours
Subjective/Interval History
-
Date of Service: May 26, 2024
Patient comfort measures. Requiring increasing doses of IV morphine. Currently not responsive.
Objective Data
-
Vital Signs:
Vital Signs
Temp Pulse Resp BP Pulse Ox
100.8 F H 92 20 159/68 91
05/26/24 10:36 05/26/24 07:10 05/26/24 07:10 05/26/24 07:10 05/26/24 07:10
I&O
05/25/24 05/26/24 05/27/24
06:59 06:59 05:59
Intake Total 0 / 0
Balance 0 / 0
Physical Exam
-
General: Comfortable
Respiratory: Non Labored Respirations; Negative Accessory Resp Muscle Use
[2024-05-26] MEDS: MORPHINE 100 IV (13:44)
[2024-05-26 19:05] VITALS: BP 99/68
[2024-05-27 07:08] VITALS: BP 136/65
--- NOTE | 2024-05-27 10:45 | W.PN.UPDATE ---
Update Note
Progress Note Update
patient on comfort measures and hospice.
Currently on IV morphine drip. Patient is unresponsive.He is comfortable. No acute respiratory distress noted.
Continue with the current measures.
Discussed with RN.
[2024-05-27] MEDS: MORPHINE SULFATE 2 MG IV ×2 (11:30→15:07)
[2024-05-27] MEDS: ATIVAN 1 MG IV (15:07)
--- NOTE | 2024-05-27 16:37 | HOSPNOTE ---
Patient is GIP level of hospice care for the management of pain, dyspnea, and anxiety that could not be managed in the outpatient setting. Patient is presently on a morphine drip at step 1 and has needed breakthrough morphine ivp for pain. He also
needed breakthrough Ativan ivp for anxiety. At time of visit, patient is resting comfortably. Patient is actively dying. Family at beside. Reviewed limited life expectancy. Family is coping appropriately. Hospice will continue to visit daily and
provide support. Informal report with Primary RN who is in agreement.
[2024-05-27 18:55] VITALS: BP 106/61
--- NOTE | 2024-05-28 01:58 | W.PN.DEATH ---
Pronouncement of
-
Called to see patient to pronounce.
No spontaneous heart tones or respirations noted.
Patient not responsive to verbal stimuli.
Patient is pronounced .
Time of : 01:40
Date of : 05/28/24
Family Notified: Yes
--- NOTE | 2024-05-28 03:10 | PTCARENOTE ---
Entered pt's room on rounds; no spontaneous respirations or heart tones noted. Covering ENTRY LEVEL MACHINE OPERATOR notified, responded bedside to pronounce TOD [id number]. IV discontinued, postmortem care performed, [facility] notified. Pt transported with his few belongings
(glasses, greeting card x2) to the [facility].
== END 2024-05-28 01:40 | disposition expired | DRG 951 ==
LOC: 2 NORTH 18:28
PROVIDERS: ADMITTING PHYSICIAN Internal Medicine
DX: Z51.5 Encounter for palliative care (principal); S72.142A Displaced intertrochanteric fracture of left femur, initial encounter for closed fracture; F01.518 Vascular dementia, unspecified severity, with other behavioral disturbance; F02.818 Dementia in other diseases classified elsewhere, unspecified severity, with other behavioral disturbance; I50.32 Chronic diastolic (congestive) heart failure; I25.10 Atherosclerotic heart disease of native coronary artery without angina pectoris; E03.9 Hypothyroidism, unspecified; D64.9 Anemia, unspecified; E78.5 Hyperlipidemia, unspecified; G30.9 Alzheimer's disease, unspecified; I34.0 Nonrheumatic mitral (valve) insufficiency; I48.0 Paroxysmal atrial fibrillation; R13.10 Dysphagia, unspecified; R32 Unspecified urinary incontinence; R62.7 Adult failure to thrive; N18.32 Chronic kidney disease, stage 3b; W19.XXXA Unspecified fall, initial encounter; Z85.46 Personal history of malignant neoplasm of prostate; Z95.5 Presence of coronary angioplasty implant and graft; Z86.73 Personal history of transient ischemic attack (TIA), and cerebral infarction without residual deficits; Z79.01 Long term (current) use of anticoagulants; Z79.890 Hormone replacement therapy